=== PATIENT | male | born 1925 | race Caucasian/White ===

== ENCOUNTER → 2016-04-14 | Outpatient (CLI) | payer MEDICARE, OTHER ==
[~2016-04-14] MED LIST: *BLDWK6; *BLDWK7; *CXR; *ECHO -; *NEBULIZER; *OXYGEN NASAL; /ADVA50050; /TIOT18INH; ACET65TA; ADV100INH INH; ADVAIR100 INHALATION; ALBU/IPRAT INHALATION; ALBU2TAB; ALDACTON25 PO; ALDACTON50 PO; AMO500 PO; ASPI325T; ASPI325T PO; ATARAX PO; ATOR1TAB21 PO; ATROVENT0.02%; CARD8TAB2; CARD8TAB2 PO; CARDURA8 PO; CEFT500T; CEFTIN500 PO; COMBIVENT PO; COREG PO; DIOV160T5; DIOV320T; DIOVAN160 PO; DOXYCYC100 PO; HCTZ25; IBUP80TA PO; LASI40TA; LASI40TA PO; LASIX40 PO; LIPI20TA; LIPITOR10; LIPITOR20; LISINOPR20 PO; MOTRIN800; MUCI600T34 PO; MUCINEX PO; NITROSTAT4; PREDNISO10 PO; PROA1AER INH; SPIR1CAP INH; SPIR50TA2; SPIRIVA INH; THERGRAN; TOPROL25 PO; TRANDOLAPRIL; TRANDOLAPRIL PO; TUSSIONEX PO; TYLE325T5 PO; VERAPAMIL; VERAPAMIL PO; VICODIN-ES; VIOXX25; VITA20008 PO; VITA250T; VITMTA PO; ZEBETA5 PO; mucinex
--- NOTE | 2016-04-14 17:58 | REP ---
Chest x-ray: Two views. History: Diastolic CHF. No comparison chest x-ray. Findings: A unipolar pacemaker is seen in the right heart via the left side. Mild to moderate cardiomegaly is observed. Cardiothoracic ratio measures 16.8 cm over 31.9 cm. There is mild linear fibrosis in the right base. No pleural effusion is seen. Interstitial markings are somewhat prominent in the bases bilaterally. This is most compatible with interstitial fibrosis. Pulmonary vasculature is not increased. There are degenerative changes in the thoracic spine. Impression: Moderate cardiomegaly with pacemaker. Bibasilar interstitial fibrosis. Signed by Alejandro Wang MD 04/14/2016 08:17 P
== END ==
LOC: M ADAMS 16:18
PROVIDERS: ATTEND Family Medicine
DX: I51.7 Cardiomegaly (principal); I50.33 Acute on chronic diastolic (congestive) heart failure; J84.89 Other specified interstitial pulmonary diseases; Z95.0 Presence of cardiac pacemaker

== ENCOUNTER → 2016-04-14 | Outpatient (REF) | payer MEDICARE, OTHER ==
[~2016-04-14] MED LIST changes: -ADV100INH INH; -ASPI325T PO; -ATOR1TAB21 PO; -CARD8TAB2 PO; -LASI40TA PO; -MUCI600T34 PO; -PROA1AER INH; -SPIR1CAP INH; -TYLE325T5 PO; -VITA20008 PO; -VITMTA PO
[2016-04-14 20:34] LABS: CALCIUM LEVEL 8.5 MG/DL (8.8-10.2); CREATININE FOR GFR 2.43 MG/DL (0.70-1.30); GLOMERULAR FILTRATION RATE 26.9 (>35)
[2016-04-14 21:01] LABS: MEAN CORPUSCULAR HEMOGLOBIN 33.4 pg (27.0-33.0); MEAN CORPUSCULAR HGB CONC 32.2 g/dl (32.0-36.5); MEAN CORPUSCULAR VOLUME 103.9 fl (80.0-96.0); RED CELL DISTRIBUTION WIDTH 13.2 % (11.5-14.5); WHITE BLOOD COUNT 4.9 K/mm3 (4.0-10.0)
== END ==
LOC: M SFHCADAM 16:00
PROVIDERS: ATTEND Family Medicine
DX: I50.33 Acute on chronic diastolic (congestive) heart failure (principal); N18.3 Chronic kidney disease, stage 3 (moderate)

== ENCOUNTER 2016-04-22 09:26 | Inpatient (IN) | payer MEDICARE, BC, OTHER ==
[~2016-04-22] VITALS: Ht 175.3 cm; Wt 62.0 kg
[2016-04-22] VITALS (22 sets, daily range): BP systolic 87–127; BP diastolic 50–66
--- NOTE | 2016-04-22 10:30 | REP ---
CT HEAD WITHOUT CONTRAST: HISTORY: Trauma. Areas of decreased attenuation are present in the periventricular white matter. This represents small vessel ischemic disease. There is no intraparenchymal hemorrhage, mass or midline shift. The ventricular system and cortical sulci are dilated consistent with moderate volume loss. There is no extracerebral collection. There is no fracture. The visualized sinuses are clear. IMPRESSION: 1. Small vessel ischemic disease.2. Moderate volume loss. Signed by Bogdan Swanson MD 04/22/2016 10:33 A
[2016-04-22 10:52] LABS: BASO % 0.4 % (0.0-1.0); EOS % 0.4 % (0.0-3.0); LARGE UNSTAINED CELL # 0.2 K/mm3 (0.0-0.4); LARGE UNSTAINED CELL % 1.4 % (0.0-4.0); LYMPH # 1.3 K/mm3 (1.5-4.5); LYMPH % 9.9 % (24.0-44.0); MEAN CORPUSCULAR HGB CONC 31.7 g/dl (32.0-36.5); MEAN CORPUSCULAR VOLUME 104.2 fl (80.0-96.0); MONO # 0.6 K/mm3 (0.0-0.8); MONO % 5.5 % (0.0-5.0); NEUTROPHILS # 9.1 K/mm3 (1.8-7.7); NEUTROPHILS % 82.4 % (36.0-66.0); PLATELET COUNT, AUTOMATED 100 k/mm3 (150-450); RED CELL DISTRIBUTION WIDTH 14.3 % (11.5-14.5); WHITE BLOOD COUNT 11.1 K/mm3 (4.0-10.0)
[2016-04-22 11:19] LABS: ALBUMIN 3.4 GM/DL (3.2-5.2); ALBUMIN/GLOBULIN RATIO 1.03 (1.00-1.93); BILIRUBIN,DIRECT 0.7 MG/DL (0.0-0.2); BILIRUBIN,TOTAL 1.6 MG/DL (0.2-1.0); CALCIUM LEVEL 8.7 MG/DL (8.8-10.2); CREATININE FOR GFR 2.6 MG/DL (0.70-1.30); GLOMERULAR FILTRATION RATE 24.9 (>35); TOTAL PROTEIN 6.7 GM/DL (6.4-8.2)
[2016-04-22] MEDS ORDERED: MORPHINE 2 MG/ML 1ML SYRINGE As Ordered ONE ×2 (11:33→11:58)
[2016-04-22] MEDS ORDERED: ONDANSETRON 4MG/2ML VIAL (J2405) As Ordered ONE (11:33)
--- NOTE | 2016-04-22 11:50 | REP ---
PORTABLE CHEST: Single AP portable view of the chest is performed and compared to prior study 04/14/2016. Cardiomegaly is again noted as well as bibasilar fibrotic changes. I see no evidence of acute infiltrate or pulmonary edema. There is mild calcification of the thoracic aorta. Mediastinal silhouette is unchanged. Left single lead pacemaker is again noted. IMPRESSION: Cardiomegaly and chronic changes are stable. No acute infiltrate. Signed by Adolfo Limon MD 04/22/2016 12:46 P
[2016-04-22] MEDS ORDERED: IPRATROPIUM 0.5MG/ALBUTEROL 2.5MG INH SOL UD 3ML (DUONEB)(J7620) As Ordered ONE (13:00)
--- NOTE | 2016-04-22 13:55 | REP ---
CT study of the chest without contrast: History: Trauma. Left sided rib pain after a fall. Comparison is made with today's radiograph. Comparison chest CT study is from November 09, 2012. CT findings: There are multiple left-sided acute rib fractures. The posterior aspect of the left 4th, 5th, 6th, 7th, 8th and 9th ribs show fractures. There are lateral fractures of the left third rib as well as the left 4th, 5th, 6th and 7th ribs. The 4th through 7th ribs are fractured in two places. There is a small left pleural effusion consistent with a small left hemothorax. There are patchy areas of consolidation in the left lower lobe posterolaterally and posteromedially consistent with contusion. A very small quantity of pleural fluid is seen in the right posterior lung gutter as well. There is evidence of COPD with linear fibrosis in the bases. A somewhat spiculated nodular opacity is visible in the right upper lobe. This is 8 mm in diameter and is somewhat suspicious for primary pulmonary malignancy. It is a new finding when compared with the 2013 prior study. No other suspicious nodule is seen. No hilar or mediastinal mass is seen. Prominent vascular calcification is noted. No adrenal lesion is seen. Impression: 1. Multiple left-sided rib fractures with fractures involving ribs 3 through 9. Ribs 4-7 are fractured in two placed, posteriorly and laterally. There is a small amount of pleural fluid bilaterally. No pneumothorax is seen. 2. Left lower lobe pulmonary contusion. 3. Suspicious 8 mm spiculated nodule right upper lobe merits follow-up and further evaluation. 4. Cardiomegaly. Signed by Alejandro Wang MD 04/22/2016 03:00 P
[2016-04-22 14:21] LABS: INR 1.24
[2016-04-22] MEDS ORDERED: VITA20008 PO (14:27)
[2016-04-22] MEDS ORDERED: MUCI600T34 PO (14:27)
[2016-04-22] MEDS ORDERED: SPIR1CAP INH (14:27)
[2016-04-22] MEDS ORDERED: PROA1AER INH (14:27)
[2016-04-22] MEDS ORDERED: ASPI325T PO (14:27)
[2016-04-22] MEDS ORDERED: LASI40TA PO (14:27)
[2016-04-22] MEDS ORDERED: CARD8TAB2 PO (14:27)
[2016-04-22] MEDS ORDERED: TYLE325T5 PO (14:27)
[2016-04-22] MEDS ORDERED: VITMTA PO (14:27)
[2016-04-22] MEDS ORDERED: ATOR1TAB21 PO (14:27)
[2016-04-22] MEDS ORDERED: ADV100INH INH (14:28)
--- NOTE | 2016-04-22 16:01 | EDDOCDS ---
Physician Documentation [facility] Name: Diogenes Orellana Age: 89 yrs Sex: Male : 1925 Arrival Date: 04/22/2016 Time: 09:26 Bed 6 Private MD: Disposition: 04/22/16 14:14 Hospitalization ordered by Scar Hussein for Inpatient Admission. Preliminary diagnosis are Multiple fractures of ribs, Contusion of lung, Syncope and collapse. - Bed requested for Admit. - Status is Inpatient Admission. mcp - Condition is Stable. - Problem is new. - Symptoms are unchanged. Historical: - Allergies: no known allergies; - Home Meds: 1. Vitamin D Oral 2000 units daily (Last dose: 04/21/2016) 2. Lipitor 20 mg Oral tab 1 tab once daily (Last dose: 04/21/2016) 3. Lasix 120mg Oral 2 times per day (Last dose: 04/21/2016) 4. aspirin 325 mg Oral tab 1 tab once daily (Last dose: 04/21/2016) 5. Spiriva with HandiHaler 18 mcg Inhl CpDv 1 cap once daily (Last dose: 04/21/2016) 6. Cardura 8 mg Oral tab 1 tab once daily (Last dose: 04/21/2016) 7. ProAir HFA 90 mcg/actuation inhalation HFAA 2 puffs every 4 hours 8. Tylenol 500mg tab 1-2 tabs po BID as needed Oral 9. Multivitamins 1 tab daily 10. Mucinex 600 mg oral Ta12 1 tab every 12 hours - PMHx: Stage III Kidney Disease; CHF; COPD; Hypercholesterolemia; - PSHx: Pacemaker Insertion; - Social history: Smoking status: Patient states former smoker of tobacco. No barriers to communication noted, The patient speaks fluent [place], Speaks appropriately for age. - Family history: Not pertinent. - : The pt / caregiver states he / she is not on anticoagulants. Home medication list is obtained from the patient, family members. - Exposure Risk Screening:: None identified. Vital Signs: 04/22 09:54 BP 106 / 54; Pulse 56; Resp 20; Temp 97.5(TE); Pulse Ox 92% 3 lpm ; Weight 61.69 kg / jo3 136 lbs; Height 5 ft. 9 in. (175.26 cm); 11:42 BP 113 / 58 (auto/); lf1 11:43 Pulse 58 MON; Pulse Ox 87% ; lf1 12:55 BP 96 / 51 (auto/); lf1 12:55 Pulse 56 MON; Pulse Ox 87% ; lf1 13:10 BP 103 / 57 (auto/); lf1 13:10 Pulse 66 MON; lf1 13:25 BP 115 / 58 (auto/); lf1 13:25 Pulse 62 MON; Pulse Ox 93% ; lf1 13:40 BP 114 / 59 (auto/); lf1 13:40 Pulse 64 MON; Pulse Ox 96% ; lf1 13:55 BP 108 / 57 (auto/); lf1 13:55 Pulse 66 MON; Pulse Ox 93% ; lf1 14:10 BP 110 / 55 (auto/); lf1 14:10 Pulse 68 MON; Pulse Ox 90% ; lf1 14:25 BP 106 / 56 (auto/); lf1 14:25 Pulse 74 MON; Pulse Ox 94% ; lf1 14:39 Pulse 72 MON; Pulse Ox 95% ; lf1 14:40 BP 101 / 58 (auto/); lf1 14:55 BP 102 / 55 (auto/); lf1 14:55 Pulse 70 MON; Pulse Ox 93% ; lf1 15:10 BP 100 / 57 (auto/); lf1 15:10 Pulse 64 MON; Pulse Ox 94% ; lf1 15:25 BP 96 / 51 (auto/); lf1 15:25 Pulse 70 MON; Pulse Ox 87% ; lf1 15:30 BP 89 / 51 (auto/); lf1 15:30 Pulse 68 MON; Pulse Ox 91% ; lf1 15:40 BP 90 / 54 (auto/); jo3 15:40 Pulse 68 MON; Resp 22; Temp 97.5(TE); Pulse Ox 91% ; jo3 09:54 Body Mass Index 20.08 (61.69 kg, 175.26 cm) jo3 09:54 80% on RA jo3 MDM: 09:54 Director Of Category Management/Pulse Ox/q 15 min VS ordered. sd1 09:54 Accucheck ordered. sd1 09:54 IV Saline Lock ordered. sd1 09:54 Oxygen at 4L/Min NC or Home dosage ordered. sd1 09:54 Rhythm Strip to chart ordered. sd1 09:55 CBC with Diff Ordered. EDMS 09:55 Cardiac Injury Profile Ordered. EDMS 09:55 Liver Profile Ordered. EDMS 09:55 MED Profile Ordered. EDMS 09:55 Thyroid Stimulating Hormone Ordered. EDMS 09:55 Troponin Ordered. EDMS 09:56 CT Head Without Contrast Ordered. EDMS 09:56 ECG WITH READING ER PHYS+CARDIAG ordered. EDMS 10:56 morphine 2 mg IVP every 15 minutes; Document pain score/vitals after each dose (Hold if sd1 SBP < 90mmHg) x3 ordered. 10:56 Ondansetron 4 mg IVP once ordered. sd1 10:57 Chest, 1 View Ordered. EDMS 11:20 CBC with Diff Reviewed. sd1 11:20 Liver Profile Reviewed. sd1 11:20 MED Profile Reviewed. sd1 11:20 Troponin Reviewed. sd1 11:20 CT Head Without Contrast Reviewed. sd1 11:28 Financial registration complete. lg 11:42 [facility] [place] Payment Agreement was scanned into [email or web address] and attached to record. lg 11:57 Cardiac Injury Profile Reviewed. sd1 11:57 Liver Profile Reviewed. sd1 11:57 MED Profile Reviewed. sd1 11:57 Troponin Reviewed. sd1 11:57 Thyroid Stimulating Hormone Reviewed. sd1 12:01 Redraw CIP &Troponin (put time in details section) ordered. sd1 12:03 Redraw CIP &Troponin (put time in details section) complete. deg 12:05 CARDIAC MARKER PANEL Ordered. EDMS 12:54 Albuterol-Ipratropium 3 ml Inhalation once ordered. sd1 12:54 Chest, 1 View Reviewed. sd1 12:56 CT Chest Without Contrast Ordered. EDMS 13:29 Chest, 1 View Reviewed. sd1 14:00 CARDIAC MARKER PANEL Reviewed. sd1 14:00 Chest, 1 View Reviewed. sd1 14:11 PT/INR Ordered. EDMS 14:30 ELECTROCARDIOGRAM ADULT ordered. EDMS 14:51 REGULAR+DIET ordered. EDMS 14:59 REGULAR+DIET ordered. EDMS 15:14 TROPONIN Ordered. EDMS Administered Medications: 11:40 Drug: Ondansetron 4 mg [ondansetron HCl 2 mg/mL intravenous solution (2 mL)] Route: jo3 IVP; Site: right antecubital; 11:42 Drug: morphine 2 mg [morphine 2 mg/mL intravenous cartridge (1 mL)] Route: IVP; Site: jo3 right antecubital; 12:00 Drug: morphine 2 mg [morphine 2 mg/mL intravenous cartridge (1 mL)] Route: IVP; Site: jo3 right antecubital; 13:05 Drug: Albuterol-Ipratropium 3 ml [ipratropium-albuterol 0.5 mg-3 mg(2.5 mg base)/3 mL kt1 nebulization soln (3 mL)] Route: Inhalation; 13:20 Follow up: Response: Nebulizer completed kt1 Signatures: Dispatcher [employer] EDMS Maria Esther Garcia MD MD sd1 Jessica Mejia, Clerical Dentist Assistant Unit deg Bethany Jernigan RN RN Mago Mcclellan Reg Reg lg Helmerci, Jennifer, RN RN jo3 Jasmyn Deras kt1 The chart was reviewed and I authenticate all verbal orders and agree with the evaluation and treatment provided.Corrections: (The following items were deleted from the chart) 14:25 14:22 TROPONIN ordered. EDCT EDMS Attachments: 11:42 [facility] [place] Payment Agreement lg MTDD
--- NOTE | 2016-04-22 16:02 | EDDOCDS ---
Nurse's Notes [facility] Name: Diogenes Orellana Age: 89 yrs Sex: Male : 1925 Arrival Date: 04/22/2016 Time: 09: Bed 6 Private MD: Diagnosis: Multiple fractures of ribs;Contusion of lung;Syncope and collapse Presentation: 04/22 09:48 Presenting complaint: EMS states: Fell at home possibly to dizziness, general weakness. jo3 Daughter states that pt has fallen 1x in the past week. Was supposed to f/u with Dr Toledo today. Last week Dr toledo increased pts Lasix from 80mg in am and 40mg in pm to 120mg BID. Adult Sepsis Screening: The patient does not have new or worsening altered mentation. Patient's respiratory rate is less than 22. Patient has a qSOFA score of 0- Negative Sepsis Screen. Suicide/Homicide risk assessment- the patient denies having any suicidal and/or homicidal ideations and does not present with any other emotional, behavioral or mental health complaints. Status: Patient is not a business services assistant or dependent. Transition of care: patient was not received from another setting of care. 09:48 Acuity: MARNI Level 3 jo3 09:48 Method Of Arrival: Ambulance jo3 Triage Assessment: 09:54 General: Appears in no apparent distress, uncomfortable, Behavior is appropriate for jo3 age, cooperative, pleasant. Pain: Location: left anterior and left posterior rib pain. Historical: - Allergies: no known allergies; - Home Meds: 1. Vitamin D Oral 2000 units daily (Last dose: 04/21/2016) 2. Lipitor 20 mg Oral tab 1 tab once daily (Last dose: 04/21/2016) 3. Lasix 120mg Oral 2 times per day (Last dose: 04/21/2016) 4. aspirin 325 mg Oral tab 1 tab once daily (Last dose: 04/21/2016) 5. Spiriva with HandiHaler 18 mcg Inhl CpDv 1 cap once daily (Last dose: 04/21/2016) 6. Cardura 8 mg Oral tab 1 tab once daily (Last dose: 04/21/2016) 7. ProAir HFA 90 mcg/actuation inhalation HFAA 2 puffs every 4 hours 8. Tylenol 500mg tab 1-2 tabs po BID as needed Oral 9. Multivitamins 1 tab daily 10. Mucinex 600 mg oral Ta12 1 tab every 12 hours - PMHx: Stage III Kidney Disease; CHF; COPD; Hypercholesterolemia; - PSHx: Pacemaker Insertion; - Social history: Smoking status: Patient states former smoker of tobacco. No barriers to communication noted, The patient speaks fluent Kiswahili, Speaks appropriately for age. - Family history: Not pertinent. - : The pt / caregiver states he / she is not on anticoagulants. Home medication list is obtained from the patient, family members. - Exposure Risk Screening:: None identified. Screenin:46 Screening information is obtained from the patient, family members. Fall risk: At risk jo3 due to prior history of falls. Assistance ADL's: requires no assistance with activities of daily living. Abuse/DV Screen: The patient / caregiver reports he/she is: not in a situation that causes fear, pain or injury. Nutritional screening: No deficits noted. home support is adequate. 15:40 Advance Directives: There is no active DNR order. jo3 Assessment: 10:10 General: Appears uncomfortable, well nourished, well groomed, Behavior is appropriate jo3 for age, cooperative, pleasant. Neurological: Level of Consciousness is awake, alert, Oriented to person, place, time. Cardiovascular: pacer to left chest. Pt reports on demand and set at 50 BPM. Respiratory: Airway is patent Respiratory effort is even, unlabored, Breath sounds are clear bilaterally. Derm: Skin is pink, warm & dry. small skin tear to left upper arm. secured with band aids from home. Musculoskeletal: Circulation, motion, and sensation intact Pt reports pain to left rib area both anteriorly and posteriorly. 11:00 Reassessment: Patient appears in no apparent distress at this time. Patient states jo3 symptoms have not improved. Pt resting on stretcher with family at bedside. awaiting visit from ED provider. aware of plan of care . 12:15 Reassessment: Patient appears in no apparent distress at this time. Patient states jo3 feeling better. Patient states symptoms have improved. Neurological: Level of Consciousness is awake, alert, Oriented to person, place, time. Respiratory: Airway is patent Respiratory effort is even, unlabored. Derm: Skin is pink, warm & dry. 13:20 General: Appears in no apparent distress, Behavior is appropriate for age, cooperative. jo3 Neurological: Level of Consciousness is awake, alert, Oriented to person, place, time. Respiratory: Airway is patent Respiratory effort is even, unlabored, Some O2 saturation decreases noted. Pt not noted to have any distress. Corrected with Ventimask. Provider notified. 14:20 Reassessment: Patient appears in no apparent distress at this time. Neurological: Level jo3 of Consciousness is awake, alert. Respiratory: Airway is patent Respiratory effort is even, unlabored. 15:39 General: Appears uncomfortable, Behavior is cooperative. Pain: Location: left chest lf1 Pain currently is 8 out of 10 on a pain scale. Aggravated by inspiration. Neurological: Level of Consciousness is awake, alert. Respiratory: Respiratory effort is even, labored, Reports shortness of breath pain with respiration. GI: Denies nausea, vomiting. Derm: multiple bruises and skin tears to BL UE. Vital Signs: 09:54 BP 106 / 54; Pulse 56; Resp 20; Temp 97.5(TE); Pulse Ox 92% 3 lpm ; Weight 61.69 kg; jo3 Height 5 ft. 9 in. (175.26 cm); 11:42 BP 113 / 58 (auto/); lf1 11:43 Pulse 58 MON; Pulse Ox 87% ; lf1 12:55 BP 96 / 51 (auto/); lf1 12:55 Pulse 56 MON; Pulse Ox 87% ; lf1 13:10 BP 103 / 57 (auto/); lf1 13:10 Pulse 66 MON; lf1 13:25 BP 115 / 58 (auto/); lf1 13:25 Pulse 62 MON; Pulse Ox 93% ; lf1 13:40 BP 114 / 59 (auto/); lf1 13:40 Pulse 64 MON; Pulse Ox 96% ; lf1 13:55 BP 108 / 57 (auto/); lf1 13:55 Pulse 66 MON; Pulse Ox 93% ; lf1 14:10 BP 110 / 55 (auto/); lf1 14:10 Pulse 68 MON; Pulse Ox 90% ; lf1 14:25 BP 106 / 56 (auto/); lf1 14:25 Pulse 74 MON; Pulse Ox 94% ; lf1 14:39 Pulse 72 MON; Pulse Ox 95% ; lf1 14:40 BP 101 / 58 (auto/); lf1 14:55 BP 102 / 55 (auto/); lf1 14:55 Pulse 70 MON; Pulse Ox 93% ; lf1 15:10 BP 100 / 57 (auto/); lf1 15:10 Pulse 64 MON; Pulse Ox 94% ; lf1 15:25 BP 96 / 51 (auto/); lf1 15:25 Pulse 70 MON; Pulse Ox 87% ; lf1 15:30 BP 89 / 51 (auto/); lf1 15:30 Pulse 68 MON; Pulse Ox 91% ; lf1 15:40 BP 90 / 54 (auto/); jo3 15:40 Pulse 68 MON; Resp 22; Temp 97.5(TE); Pulse Ox 91% ; jo3 09:54 Body Mass Index 20.08 (61.69 kg, 175.26 cm) jo3 09:54 80% on RA jo3 Vitals: 09:54 Log In Time N/A - ambulance arrival. jo3 ED Course: 09:27 Patient visited by Jessica Mejia, Gas Plumber. deg 09:27 Patient moved to Waiting deg 09:28 Patient moved to 6 deg 09:52 Triage Initiated jo3 09:59 Patient visited by Deepti Nash,CHELSEA. jo3 10:06 Accompanied by Family Member, Patient has correct armband on for positive ct3 identification. Placed in gown. Bed in low position. Call light in reach. Side rails up X2. front desk monitor on. Pulse ox on. NIBP on. 10:06 EKG done. (by ED staff). Reviewed by Maria Esther Garcia MD. ct3 10:07 Patient visited by Stephanie Laguerre PCA. ct3 10:34 CT Head Without Contrast Returned. EDMS 10:43 Maria Esther Garcia MD is Attending Physician. sd1 10:56 Patient visited by Maria Esther Garcia MD. sd1 11:03 Patient visited by Deepti Nash,CHELSEA. jo3 11:18 Inserted saline lock: 20 gauge in right antecubital area. Labs drawn. (by ED staff). jo3 Sent per order to lab. 11:35 Patient visited by Stephanie Laguerre PCA. ct3 11:42 [facility] Payment Agreement was scanned into [employer] and attached to record. lg 11:47 Patient visited by Deepti Nash RN. jo3 12:07 Chest, 1 View Returned. EDMS 12:55 Patient visited by Stephanie Laguerre PCA. ct3 12:56 Chest, 1 View Returned. EDMS 13:37 Patient visited by Stephanie Laguerre PCA. ct3 13:46 Chest, 1 View Returned. EDMS 14:14 Scar Hussein is Hospitalizing Provider. sd1 14:37 CT Chest Without Contrast Returned. EDMS 15:40 The patient / caregiver is instructed regarding the plan of care and ED course. jo3 15:44 No procedures done that require assistance. jo3 Administered Medications: 11:40 Drug: Ondansetron 4 mg [ondansetron HCl 2 mg/mL intravenous solution (2 mL)] Route: jo3 IVP; Site: right antecubital; 11:42 Drug: morphine 2 mg [morphine 2 mg/mL intravenous cartridge (1 mL)] Route: IVP; Site: jo3 right antecubital; 12:00 Drug: morphine 2 mg [morphine 2 mg/mL intravenous cartridge (1 mL)] Route: IVP; Site: jo3 right antecubital; 13:05 Drug: Albuterol-Ipratropium 3 ml [ipratropium-albuterol 0.5 mg-3 mg(2.5 mg base)/3 mL kt1 nebulization soln (3 mL)] Route: Inhalation; 13:20 Follow up: Response: Nebulizer completed kt1 RT: 13:20 Initial Med Neb Given as ordered Patient was instructed and evaluated on procedure. kt1 Respiratory: Breath sounds are clear bilaterally. Order Results: Lab Order: CBC with Diff; SPEC'M 04/22/16 10:33 Test: WHITE BLOOD COUNT; Value: 11.1; Range: 4.0-10.0; Abnormal: Above high normal; Units: K/mm3; Status: F Test: RED BLOOD COUNT; Value: 3.92; Range: 4.30-6.10; Abnormal: Below low normal; Units: M/mm3; Status: F Test: HEMOGLOBIN; Value: 12.9; Range: 14.0-18.0; Abnormal: Below low normal; Units: g/dl; Status: F Test: HEMATOCRIT; Value: 40.8; Range: 42.0-52.0; Abnormal: Below low normal; Units: %; Status: F Test: MEAN CORPUSCULAR VOLUME; Value: 104.2; Range: 80.0-96.0; Abnormal: Above high normal; Units: fl; Status: F Test: MEAN CORPUSCULAR HEMOGLOBIN; Value: 33.0; Range: 27.0-33.0; Units: pg; Status: F Test: MEAN CORPUSCULAR HGB CONC; Value: 31.7; Range: 32.0-36.5; Abnormal: Below low normal; Units: g/dl; Status: F Test: RED CELL DISTRIBUTION WIDTH; Value: 14.3; Range: 11.5-14.5; Units: %; Status: F Test: PLATELET COUNT, AUTOMATED; Value: 100; Range: 150-450; Abnormal: Below low normal; Units: k/mm3; Status: F Test: NEUTROPHILS %; Value: 82.4; Range: 36.0-66.0; Abnormal: Above high normal; Units: %; Status: F Test: LYMPH %; Value: 9.9; Range: 24.0-44.0; Abnormal: Below low normal; Units: %; Status: F Test: MONO %; Value: 5.5; Range: 0.0-5.0; Abnormal: Above high normal; Units: %; Status: F Test: EOS %; Value: 0.4; Range: 0.0-3.0; Units: %; Status: F Test: BASO %; Value: 0.4; Range: 0.0-1.0; Units: %; Status: F Test: LARGE UNSTAINED CELL %; Value: 1.4; Range: 0.0-4.0; Units: %; Status: F Test: NEUTROPHILS #; Value: 9.1; Range: 1.8-7.7; Abnormal: Above high normal; Units: K/mm3; Status: F Test: LYMPH #; Value: 1.3; Range: 1.5-4.5; Abnormal: Below low normal; Units: K/mm3; Status: F Test: MONO #; Value: 0.6; Range: 0.0-0.8; Units: K/mm3; Status: F Test: EOS #; Value: 0.0; Range: 0.0-0.50; Units: K/mm3; Status: F Test: BASO #; Value: 0.0; Range: 0.0-0.2; Units: K/mm3; Status: F Test: LARGE UNSTAINED CELL #; Value: 0.2; Range: 0.0-0.4; Units: K/mm3; Status: F Lab Order: Cardiac Injury Profile; [facility] 04/22/16 10:33 Test: CPK CREATINE PHOSPHOKINASE; Value: 100; Range: 39-308; Units: U/L; Status: F Test: CK-MB VALUE MASS; Value: 5.2; Range: 0.0-3.6; Abnormal: Above high normal; Units: NG/ML; Status: F Test: MB/CK RELATIVE INDEX; Value: 5.20; Range: < OR =4; Abnormal: Above high normal; Status: F Test Note: ; DIAGNOSIS CRITERIA MMB ng/ml Relative Index (RI) NON-AMI < or = 5 N/A LIMON ZONE > 5 < or = 4 AMI > 5 > 4 Lab Order: Liver Profile; [facility] 04/22/16 10:33 Test: AST/SGOT; Value: 28; Range: 15-37; Units: U/L; Status: F Test: ALT/SGPT; Value: 27; Range: 12-78; Units: U/L; Status: F Test: ALKALINE PHOSPHATASE; Value: 148; Range: 45-117; Abnormal: Above high normal; Units: U/L; Status: F Test: BILIRUBIN,TOTAL; Value: 1.6; Range: 0.2-1.0; Abnormal: Above high normal; Units: MG/DL; Status: F Test: BILIRUBIN,DIRECT; Value: 0.7; Range: 0.0-0.2; Abnormal: Above high normal; Units: MG/DL; Status: F Test: TOTAL PROTEIN; Value: 6.7; Range: 6.4-8.2; Units: GM/DL; Status: F Test: ALBUMIN; Value: 3.4; Range: 3.2-5.2; Units: GM/DL; Status: F Test: ALBUMIN/GLOBULIN RATIO; Value: 1.03; Range: 1.00-1.93; Status: F Lab Order: MED Profile; SPEC04/22/16 10:33 Test: GLUCOSE, FASTING; Value: 156; Range: 83-110; Abnormal: Above high normal; Units: MG/DL; Status: F Test: BLOOD UREA NITROGEN; Value: 76; Range: 7-18; Abnormal: Above high normal; Units: MG/DL; Status: F Test: CREATININE FOR GFR; Value: 2.60; Range: 0.70-1.30; Abnormal: Above high normal; Units: MG/DL; Status: F Test: GLOMERULAR FILTRATION RATE; Value: 24.9; Range: >35; Abnormal: Below low normal; Status: F Test: SODIUM LEVEL; Value: 143; Range: 136-145; Units: MEQ/L; Status: F Test: POTASSIUM SERUM; Value: 4.0; Range: 3.5-5.1; Units: MEQ/L; Status: F Test: CHLORIDE LEVEL; Value: 106; Range: 98-107; Units: MEQ/L; Status: F Test: CARBON DIOXIDE LEVEL; Value: 24; Range: 21-32; Units: MEQ/L; Status: F Test: ANION GAP; Value: 13; Range: 8-16; Units: MEQ/L; Status: F Test: CALCIUM LEVEL; Value: 8.7; Range: 8.8-10.2; Abnormal: Below low normal; Units: MG/DL; Status: F Test Note: ; Units are mL/min/1.73 m2 Chronic Kidney Disease Staging per NKF: Stage I & II GFR >=60 Normal to Mildly Decreased Stage III GFR 30-59 Moderately Decreased Stage IV GFR 15-29 Severely Decreased Stage V GFR <15 Very Little GFR Left ESRD GFR <15 on SUBGRADE ROLLER OPERATOR Lab Order: Thyroid Stimulating Hormone; [facility] 04/22/16 10:33 Test: THYROID STIMULATING HORMONE; Value: 2.580; Range: 0.358-3.740; Units: uIU/ML; Status: F Lab Order: Troponin; [facility] 04/22/16 10:33 Test: TROPONIN I; Value: 0.43; Range: < 0.10; Abnormal: Above high normal; Units: NG/ML; Status: F Test Note: ; Troponin I Reference Interval for [place] LOCI: 99th Percentile= 0.00-0.045 ng/ml Risk Stratification: <= 0.10 ng/ml Decreased Risk for Adverse Clinical Events. 0.10-1.50 ng/ml Increased Risk for Adverse Clinical Events. Evaluation of additional criterion and/or repeat testing in 2-6 hours is suggested to rule out myocardial damage. >= 1.50 ng/ml Indicative of Myocardial Injury. Lab Order: CARDIAC MARKER PANEL; SPEC'[facility] 04/22/16 12:44 Test: CPK CREATINE PHOSPHOKINASE; Value: 128; Range: 39-308; Units: U/L; Status: F Test: CK-MB VALUE MASS; Value: 10.1; Range: 0.0-3.6; Abnormal: Above high normal; Units: NG/ML; Status: F Test: MB/CK RELATIVE INDEX; Value: 7.89; Range: < OR =4; Abnormal: Above high normal; Status: F Test: TROPONIN I; Value: 1.34; Range: < 0.10; Abnormal: High; Units: NG/ML; Status: F Test Note: ; DIAGNOSIS CRITERIA MMB ng/ml Relative Index (RI) NON-AMI < or = 5 N/A LIMON [place]ONE > 5 < or = 4 AMI > 5 > 4 Lab Order: PT/INR; SPE[facility] 04/22/16 10:33 Test: PROTHROMBIN TIME; Value: 15.7; Range: 12.3-14.5; Abnormal: Above high normal; Units: SECONDS; Status: F Test: INR; Value: 1.24; Status: F Test Note: ; THERAPUTIC HUMAN INR VALUES INDICATIONS NORMAL RANGES PROPHYLAXIS/TREATMENT OF: VENOUS THROMBOSIS 2.0-3.0 PULMONARY EMBOLISM 2.0-3.0 PREVENTION OF SYSTEMIC EMBOLISM FROM: TISSUE HEART VALVES 2.0-3.0 ACUTE MYOCARDIAL INFARCTION 2.0-3.0 VALVULAR HEART DISEASE 2.0-3.0 ATRIAL FIBRILLATION 2.0-3.0 MECHANICAL VALVES(HIGH RISK) 2.5-3.5 RECURRENT MYOCARDIAL INFARCTION 2.5-3.5 Radiology Order: CT Head Without Contrast Test: CT Head Without Contrast REASON FOR EXAMINATION: Trauma; CT HEAD WITHOUT CONTRAST:; ; HISTORY: Trauma.; ; Areas of decreased attenuation are present in the periventricular white matter.; This represents small vessel ischemic disease. There is no intraparenchymal; hemorrhage, mass or midline shift. The ventricular system and cortical sulci are; dilated consistent with moderate volume loss. There is no extracerebral; collection. There is no fracture. The visualized sinuses are clear.; ; IMPRESSION:; ; 1. Small vessel ischemic disease.2. Moderate volume loss.; ; ; Signed by; Bogdan Swanson MD 04/22/2016 10:33 A; Radiology Order: Chest, 1 View Test: Chest, 1 View REASON FOR EXAMINATION: Cough;Trauma; PORTABLE CHEST:; ; Single AP portable view of the chest is performed and compared to prior study; 04/14/2016. Cardiomegaly is again noted as well as bibasilar fibrotic changes.; I see no evidence of acute infiltrate or pulmonary edema. There is mild; calcification of the thoracic aorta. Mediastinal silhouette is unchanged. Left; single lead pacemaker is again noted.; ; IMPRESSION:; ; Cardiomegaly and chronic changes are stable. No acute infiltrate.; ; ; Signed by; Adolfo Limon MD 04/22/2016 12:46 P; Radiology Order: CT Chest Without Contrast Test: CT Chest Without Contrast REASON FOR EXAMINATION: Trauma; CT study of the chest without contrast:; ; History: Trauma. Left sided rib pain after a fall. Comparison is made with; today's radiograph. Comparison chest CT study is from November 09, 2012.; ; CT findings: There are multiple left-sided acute rib fractures. The posterior; aspect of the left 4th, 5th, 6th, 7th, 8th and 9th ribs show fractures. There; are lateral fractures of the left third rib as well as the left 4th, 5th, 6th and; 7th ribs. The 4th through 7th ribs are fractured in two places.; ; There is a small left pleural effusion consistent with a small left hemothorax.; There are patchy areas of consolidation in the left lower lobe posterolaterally; and posteromedially consistent with contusion. A very small quantity of pleural; fluid is seen in the right posterior lung gutter as well. There is evidence of; COPD with linear fibrosis in the bases.; ; A somewhat spiculated nodular opacity is visible in the right upper lobe. This; is 8 mm in diameter and is somewhat suspicious for primary pulmonary malignancy.; It is a new finding when compared with the 2012 prior study. No other suspicious; nodule is seen. No hilar or mediastinal mass is seen. Prominent vascular; calcification is noted. No adrenal lesion is seen.; ; Impression:; ; 1. Multiple left-sided rib fractures with fractures involving ribs 3 through 9.; Ribs 4-7 are fractured in two placed, posteriorly and laterally. There is a; small amount of pleural fluid bilaterally. No pneumothorax is seen.; ; 2. Left lower lobe pulmonary contusion.; ; 3. Suspicious 8 mm spiculated nodule right upper lobe merits follow-up and; further evaluation.; ; 4. Cardiomegaly.; ; ; Signed by; Alejandro Wang MD 04/22/2016 03:00 P; Outcome: 14:14 Decision to Hospitalize by Provider. sd1 15:43 Discharge Assessment: Patient awake, alert and oriented x 3. No cognitive and/or jo3 functional deficits noted. Patient verbalized understanding of disposition instructions. patient administered narcotics - yes. Patient was admitted to the hospital or transferred to another facility. The following High Risk Discharge criteria are identified: None. Admitted to PCU accompanied by nurse, accompanied by tech, family with patient, via stretcher, with oxygen, on monitor, with chart. Condition: stable. CT Study completed. Property :Personal belongings accompany Pt. 16:01 Patient left the ED. [facility] Signatures: Dispatcher [employer] EDMS Maria Esther Garcia MD MD sd1 Jessica Mejia, Gas Plumber Unit Bethany Dillon, RN Mago Michel mcp, Jasmyn Mtz lg, kt1 Deepti Nash RN RN jo3 Jennifer Knott RN RN lf1 Stephanie Laguerre, JOJO PRESS MAINTAINER ct3 MTDD
[2016-04-22] MEDS ORDERED: KCL 20MEQ IN D5/NS 1000ML 1,000 ML IV SCH (16:48)
[2016-04-22] MEDS ORDERED: NORCO, ANEXSIA 5/325MG TABLET (HYDROcodone/ACETAMINOPHEN) PO PRN (17:00)
[2016-04-22] MEDS ORDERED: LEVALBUTEROL 1.25 MG/0.5 ML CONCENTRATE NEB NEB PRN (17:00)
[2016-04-22] MEDS ORDERED: ACETAMINOPHEN TAB 650MG DOSE (2X325MG) PO PRN (17:00)
[2016-04-22] MEDS ORDERED: ceFAZolin SOD 1 GM in D5W MINI-BAG PLUS 50 ML IV SCH (17:00)
[2016-04-22] MEDS ORDERED: ONDANSETRON 4MG/2ML VIAL (J2405) IV PRN ×2 (17:00→19:00)
[2016-04-22] MEDS ORDERED: zolPIDEM TARTRATE 5 MG TAB PO PRN (17:00)
[2016-04-22] MEDS ORDERED: PERCOCET 5MG/325MG TAB PO PRN ×2 (17:00)
[2016-04-22] MEDS ORDERED: BISACODYL 10 MG SUPP PR PRN (17:00)
[2016-04-22] MEDS ORDERED: KETOROLAC 30 MG/ML VIAL (J1885) IV SCH (17:00)
--- NOTE | 2016-04-22 17:00 | CR.PDOC ---
[facility] Cardiology Consultation Date of Consultation 04/22/16 Cadiology Consultation REFERRING PHYSICIAN: Scar Hussein M.D. REASON FOR REFERRAL: Syncope, Abnormal troponin I HISTORY OF PRESENT ILLNESS: 89-year-old man with chronic atrial fibrillation, status post [employer] single-chamber pacemaker (VVI 50), chronic kidney disease stage III, Cardiovascular Symptoms Patient had sudden loss of consciousness while standing without warning on 2 occasions last week and again today. He did not have any preceding palpitations , nausea or vomiting. Today he sustained multiple left-sided rib fractures as result of syncope. He reports a productive cough with brown sputum. He reports chronic exertional dyspnea currently with less than ordinary activities of daily living. He reports that his diuretic was increased because of peripheral edema; he still reports some edema but improved. No orthopnea or PND. Currently he has chest pain related to history of fractures. Prior to sustaining rib fractures today he has not been bothered by any exertional or nonexertional chest pain, pressure, tightness, squeezing, or heaviness and no associated such pain or discomfort in the neck, jaw, upper extremities, or epigastric region. No palpitations. No embolic events. No claudication. PAST MEDICAL: Chronic atrial fibrillation (refuses anticoagulation) Chronic kidney disease stage III (followed by Dr. Jesus Bella) Diastolic heart failure (diagnosis 2006) Echocardiogram 06/2006: LVEF 55-60%, moderately severe pulmonary hypertension, mild-moderate MR. Systemic Hypertension BPH COPD GERD Tinnitus, bilateral decreased hearing Hyperlipidemia Herniated L4-L5 disc Diverticulosis (colonoscopy 11/2002) Pneumonia (right middle lobe, 12/2007) SURGICAL HISTORY: [employer] single-chamber pacemaker Pilonidal cyst surgery with an 60 years ago. FAMILY HISTORY: Noncontributory due to advanced age. SOCIAL HISTORY: Resident of [employer]. . Retired. Nonsmoker at present. No alcohol. REVIEW OF SYSTEMS: As per HPI above. He also reports a 30 pound weight loss over the past one year. No anxiety, panic attacks, or depression. GERD, decreased hearing, tinnitus, left eye cataract, BPH, prior nasal fracture. Bilateral shoulder pain. All other 10 point review of systems questions negative. PHYSICAL EXAMINATION: VITAL SIGNS: Please see below. GENERAL APPEARANCE: - Normal body weight. Not in any respiratory or psychologic distress. No gross head, facial, or skeletal deformities. EYES: No conjunctival pallor, scleral icterus or xanthelasma. ENT/Mouth: - Some dental fillings. - Some missing teeth. NECK: Jugular Venous Pulsations: 2 cm Trachea midline. No palpable thyroid. EXTREMITIES: No clubbing, nailbed cyanosis, or splinter hemorrhages. SKIN: No skin lesions. No skin pallor or icterus. NEUROLOGIC/PSYCHOLOGIC: Oriented to person, place, and time. Mood and affect normal. Speech normal. MUSCULOSKELETAL: Curvature of the spine normal. Gross motor strength and tone normal. No muscle atrophy, fasciculations, or tremors. - Gait not appropriate to test at this time. THORAX: Breathing appears unlabored with normal expansion. No dullness to percussion. Fair breath sound intensity. No crackles, wheezes, or prolonged expiration. Tender over the lower left posterior hemithorax. HEART: Pacemaker in situ left pectoral region. No palpable apex beat. No left parasternal lifts, heaves, or thrills. S1 normal. S2 normal. No S3 or S4. No systolic clicks, opening snap, pericardial knock, or pericardial friction rubs No murmurs. ARTERIAL PULSES: Carotids normal in volume and contour and without bruits. No palpable abdominal aorta. Femoral pulses 2+/2 Pedal pulses 2+/2 LOWER EXTREMITY EDEMA: - No edema. ABDOMEN: Abdomen soft nontender with normal bowel sounds. No abdominal bruits. No hepatomegaly, splenomegaly, or abdominal masses. - Liver span (right midclavicular line): 12 cm - Stool for occult blood not indicated. ALLERGIES: Please see below. HOME MEDICATIONS: Please see below. CURRENT MEDICATIONS: Please see below. Electrocardiogram: Not available for my review at the time of this dictation. LABORATORY DATA: Please see below. IMAGING: Portable chest x-ray 04/22/2016 reported cardiomegaly and chronic changes (stable ). Bibasilar fibrotic changes. Mild calcification of the thoracic or. Presence of a single chamber pacemaker. CT chest without contrast 04/22/2016 reported multiple left-sided rib fractures involving ribs 3 through 9. Ribs 4-7 fractured in 2 places (posteriorly and laterally). Small amount of pleural fluid bilaterally. No pneumothorax. Left lower lobe contusion. Suspicious 8 mm spiculated nodule right upper lobe. Cardiomegaly. ASSESSMENT/PLAN: 1. Recurrent syncope. I suspect this patient's recurrent syncope is most likely related to dehydration and his cardiovascular medications (furosemide, doxazosin ). Pacemaker was interrogated and found to show normal function. It is set at VVI 50. Recommend obtaining orthostatic BP measurements. Recommend switching patient from doxazosin to tamsulosin. Recommend obtaining chest CTA to rule out acute pulmonary embolism. 2. Chronic atrial fibrillation. Continue aspirin. Patient has refused oral anti- coordination on multiple occasions. He does not require AV oxana slowing medications. 3. Advanced AV block. Status post single-chamber pacemaker in situ (VVI 50). 4. [employer] ventricular pacemaker in situ. Set at VVI 50. Pacemaker interrogated today and found to show normal function. No reprogramming was necessary. 5. Elevated troponin I. The patient has not been having any anginal type pain or discomfort. ECG not available for my review at this time. I very much doubt that this patient's elevated troponin I is due to primary NSTEMI. I suspect it is most likely due to prolonged hypotension earlier today. He appears compensated on examination and by chest x-ray. It will be important to rule out acute embolism as a cause of his syncope and elevated troponin I; therefore suggest chest CTA. Recommend additional serial cardiac enzymes and ECGs. At this point I would not transfer him for cardiac catheterization. Continue aspirin. Thank you kindly for asking me to participate in the care of your patient. Vital Signs/I&O Height (in): 69 Weight (kg): 61.7 BMI (kg): 20.1 Laboratory Data Labs 24H Laboratory Tests 2 04/22/16 10:33: Aspartate Amino Transf (AST/SGOT) 28, Alanine Aminotransferase (ALT/SGPT) 27, Alkaline Phosphatase 148H, Total Bilirubin 1.6H, Direct Bilirubin 0.7H, Albumin 3.4, Albumin/Globulin Ratio 1.03, Anion Gap 13, White Blood Count 11.1H, Red Blood Count 3.92L, Hemoglobin 12.9L, Hematocrit 40.8L, Mean Corpuscular Volume 104.2H, Mean Corpuscular Hemoglobin 33.0, Mean Corpuscular Hemoglobin Concent 31.7L, Red Cell Distribution Width 14.3, Platelet Count 100L, Neutrophils (%) ( Auto) 82.4H, Lymphocytes (%) (Auto) 9.9L, Monocytes (%) (Auto) 5.5H, Eosinophils (%) (Auto) 0.4, Basophils (%) (Auto) 0.4, Neutrophils # (Auto) 9.1H , Lymphocytes # (Auto) 1.3L, Monocytes # (Auto) 0.6, Eosinophils # (Auto) 0.0, Basophils # (Auto) 0.0, Calcium Level 8.7L, Creatine Kinase MB 5.2H, Creatine Kinase MB Relative Index 5.20H, Glomerular Filtration Rate 24.9L, Large Unclassified Cells # 0.2, Large Unclassified Cells % 1.4, Prothromb Time International Ratio 1.24, Prothrombin Time 15.7H, Thyroid Stimulating Hormone ( TSH) 2.580, Total Creatine Kinase 100, Total Protein 6.7, Troponin I 0.43H 04/22/16 12:44: Creatine Kinase MB 10.1H, Creatine Kinase MB Relative Index 7.89H, Total Creatine Kinase 128, Troponin I 1.34#H 04/22/16 15:18: CBC/BMP Laboratory Tests 04/22/16 10:33 Red Blood Count 3.92 L, Mean Corpuscular Volume 104.2 H, Mean Corpuscular Hemoglobin 33.0, Mean Corpuscular Hemoglobin Concent 31.7 L, Red Cell Distribution Width 14.3, Neutrophils (%) (Auto) 82.4 H, Lymphocytes (%) (Auto) 9.9 L, Monocytes (%) (Auto) 5.5 H, Eosinophils (%) (Auto) 0.4, Basophils (%) ( Auto) 0.4, Neutrophils # (Auto) 9.1 H, Lymphocytes # (Auto) 1.3 L, Monocytes # ( Auto) 0.6, Eosinophils # (Auto) 0.0, Basophils # (Auto) 0.0 Home Medications Scheduled Aspirin (Aspirin) 325 Mg Tab 325 MG PO DAILY (Reported) Atorvastatin Calcium (Atorvastatin Calcium) 20 Mg Tab 20 MG PO QPM (Reported) Cholecalciferol (Vitamin D3) 2,000 Unit Tab 2,000 UNIT PO DAILY (Reported) Doxazosin Mesylate (Cardura) 8 Mg Tab 8 MG PO DAILY (Reported) Furosemide (Lasix) 40 Mg Tab 40 MG PO BID (Reported) Guaifenesin (Mucinex) 600 Mg Tab 600 MG PO BID (Reported) Multivitamins *[facility] STOCKED* (Thera M Plus *[facility] STOCKED*) 1 Tab Tab 1 TAB PO DAILY (Reported) Salmeterol/Fluticasone (Advair Diskus 100-50 Mcg/Dose) 28 Puff/Inhaler Aerp 1 PUFF INH BID (Reported) Tiotropium [place] Monohydrate (Spiriva Handihaler) 18 Mcg Cap 1 INHALATION INH DAILY (Reported) Scheduled PRN Acetaminophen (Tylenol) 325 Mg Tab 650 MG PO Q4H PRN PRN PAIN / FEVER (Reported ) Albuterol Sulfate (Proair Hfa) 108 Mcg/Act Aer 2 PUFF INH Q4H PRN PRN SHORTNESS OF BREATH (Reported) Current Medications Current Medications Home Med (Med Rec Complete!) ASDIRECTED XX ; Start 04/22/16 at 14:30; Stop at 14:31; Status DC Allergies Allergies: Coded Allergies: Calcium (Verified Allergy, Unknown, 07/03/12) NANCY Inhibitors (Verified Adverse Reaction, Intermediate, LEG SWELLING, 07/03) Calcium Channel Blockers (Verified Adverse Reaction, Intermediate, LEG SWELLING, 07/03/12) Verapamil (Verified Adverse Reaction, Intermediate, LEG SWELLING, 07/03/12) Carvedilol (Verified Adverse Reaction, Mild, CRAMPS,DIARRHEA, 07/03/12) Lisinopril (Verified Adverse Reaction, Mild, CRAMPS,DIARRHEA, 07/03/12) Tetracycline (Verified Adverse Reaction, Mild, TONGUE BURNING/NAUSEA, ) Trandolapril (Verified Adverse Reaction, Mild, DAIRRHEA, 07/03/12) Denis Heaton Apr 22, 2016 15:57
[2016-04-22] MEDS ORDERED: ALBUTEROL 90 MCG/ACT 8GM HFA INHALER INH PRN (17:15)
[2016-04-22 17:21] LABS: BASO % 0.1 % (0.0-1.0); EOS % 0.1 % (0.0-3.0); LARGE UNSTAINED CELL # 0.1 K/mm3 (0.0-0.4); LARGE UNSTAINED CELL % 1.7 % (0.0-4.0); LYMPH % 11.7 % (24.0-44.0); MEAN CORPUSCULAR HEMOGLOBIN 33.2 pg (27.0-33.0); MEAN CORPUSCULAR HGB CONC 31.4 g/dl (32.0-36.5); MEAN CORPUSCULAR VOLUME 105.8 fl (80.0-96.0); MONO # 0.3 K/mm3 (0.0-0.8); MONO % 3.8 % (0.0-5.0); NEUTROPHILS # 6.9 K/mm3 (1.8-7.7); NEUTROPHILS % 82.7 % (36.0-66.0); RED CELL DISTRIBUTION WIDTH 13.4 % (11.5-14.5); WHITE BLOOD COUNT 8.4 K/mm3 (4.0-10.0)
[2016-04-22 17:42] LABS: PLATELET COUNT, AUTOMATED 96 k/mm3 (150-450)
[2016-04-22 17:43] LABS: ABG BASE EXCESS -5.2 (-2.0-2.0); ABG HCO3 19.3 MEQ/L (22.0-26.0); ABG PARTIAL PRESSURE CO2 34.1 mmHg (35.0-45.0); ABG PARTIAL PRESSURE O2 57.3 mmHg (75.0-100.0); ABG STANDARD HCO3 20.1 MEQ/L (22.0-26.0); ABG TOTAL CO2 20.3 MEQ/L (23.0-31.0)
[2016-04-22 17:58] LABS: ANION GAP 12 MEQ/L (8-16); BLOOD UREA NITROGEN 77 MG/DL (7-18); CALCIUM LEVEL 8.2 MG/DL (8.8-10.2); CARBON DIOXIDE LEVEL 25 MEQ/L (21-32); CHLORIDE LEVEL 105 MEQ/L (98-107); CREATININE FOR GFR 2.94 MG/DL (0.70-1.30); GLOMERULAR FILTRATION RATE 21.6 (>35); GLUCOSE, FASTING 188 MG/DL (83-110); POTASSIUM SERUM 4.1 MEQ/L (3.5-5.1); SODIUM LEVEL 142 MEQ/L (136-145)
[2016-04-22 18:10] LABS: FOLATE > 24.0 NG/ML (>5.4); VITAMIN B12 LEVEL 776 PG/ML (247-911)
--- NOTE | 2016-04-22 18:26 | HPE ---
DATE OF ADMISSION: 04/22/2016 PRIMARY CARE PROVIDER: Lavell Roman MD CHIEF COMPLAINT: Fall. HISTORY OF PRESENT ILLNESS: The patient is an 89-year-old man who has had worsening dyspnea on exertion for the last several weeks. Informs me that one week ago he became short of breath while loading groceries into his car in a parking lot and he collapsed in the parking lot. He did not seek medical attention at that time. He reportedly had his diuretic doubled by his primary care provider within recent days. The patient reports that this morning he woke up and immediately felt short of breath and lightheaded. Shortly thereafter he walked down to his kitchen and he lost consciousness. He was alone on both occasions. They were unwitnessed syncopal episodes. The patient found down by his family who brought him to the emergency room. At the present time the patient complains only of some mild pain on his left side of his chest with deep inspiration, but otherwise he has no specific complaints otherwise. He denies chest pressure prior to the incident, nausea, vomiting or diaphoresis. PAST MEDICAL HISTORY: Stage III chronic kidney disease. Diastolic congestive heart failure. Chronic obstructive pulmonary disease (COPD). Bradyarrhythmia requiring pacemaker insertion. Dyslipidemia. Benign prostatic hypertrophy (BPH). HOME MEDICATIONS: - Tylenol 650 mg every 4 hours as needed for pain or fever - Lasix 40 mg twice a day - albuterol 108 mcg inhaled every 4 hours as needed for shortness of breath. - aspirin 325 mg daily - Lipitor 20 mg every pm - vitamin D3 2000 units daily - doxazosin 8 mg daily - Mucinex 600 mg twice a day - multivitamin one tablet daily - Advair Diskus 150/50 inhaled twice a day - Spiriva HandiHaler 18 mcg inhaled daily ALLERGIES: No known drug allergies. PAST MEDICAL HISTORY: Pacemaker insertion. SOCIAL HISTORY: The patient is a former smoker. He lives with his . His daughter is very involved with his care. Reports that he is a DO NOT RESUSCITATE (DNR), DO NOT INTUBATE (DNI). His family will bring his medical order of life-sustaining treatment (MOLST) form in. FAMILY HISTORY: Noncontributory. REVIEW OF SYSTEMS: Negative other than HPI. PHYSICAL EXAMINATION: Blood pressure 106/54, pulse 56, respiratory rate 20, temperature 97.5, O2 saturation 92% on 3 liters nasal cannula. GENERAL: He is a frail elderly man sitting up in a stretcher. He appears to be in very mild respiratory distress with mild accessory muscle use. HEENT: He has poor dentition. Dry mucous membranes. He has elevation of central venous pressure. CARDIOVASCULAR: S1, S2. Bradycardic. RESPIRATORY: Actually fairly clear. There is some tenderness to palpation over the left side, however. He does not have significant pain. ABDOMEN: Benign. EXTREMITIES: No clubbing, cyanosis or appreciable edema. LABORATORY STUDIES: WBC 11.1, hemoglobin 12.9, hematocrit 40.8, platelet count is 100. Chemistry panel: Sodium 143, potassium 4.0, chloride 106, bicarbonate 24, BUN 76, creatinine 2.6. The patient's BUN baseline appears to be closer to 60. His creatinine also baseline appears to be closer to 2.2. T-bilirubin is slightly elevated at 1.6 with an elevated direct at 0.87. Alkaline phosphatase is slightly elevated at 148. Troponin initially was 0.43. In two hours it did triple to 1.34. BNP is from the 18th at 835. The patient's TSH within normal limits. IMAGING: The patient did have a CT scan of his head which revealed small vascular ischemic disease and moderate volume loss. He also had a chest x-ray which revealed cardiomegaly and chronic changes without any acute infiltrate. He subsequently did have a CT scan of his chest, which revealed multiple left-sided rib fractures involving ribs 3 through 9. A small amount of pleural fluid bilaterally. No pneumothorax seen. Left lower lobe pulmonary contusion. Suspicious 8 mm spiculated right upper lobe, merits followup. Cardiomegaly. ASSESSMENT AND PLAN: This is an 89-year-old man with syncope and troponinemia complicated by pulmonary contusion and rib fractures. 1. The patient initially presented with dyspnea and syncope. I spoke with Dr. Heaton of cardiology who has agreed to see the patient in formal consultation as well as do a pacemaker inspection. He suspects that the patient may have been over-diuresed. As such we will hold any further diuretics. Will check orthostatics. The patient has pleural effusions and on my exam appears to be a little bit volume up, however, at this time we will hold any further diuresis and monitor his renal function to see if it improves with cessation of diuretics. We will also switch from doxazosin to tamsulosin as per Dr. Heaton's recommendation. There is also concern for possible pulmonary embolism (PE). The patient is not tachycardic, however, he is hypoxic. I will check a V/Q scan to further evaluate. Would avoid IV contrast in the setting of his chronic kidney disease. Will monitor him on telemetry on the progressive care unit. 2. Rib fracture and pulmonary contusion. I spoke with Dr. Fink who has agreed to see the patient in consultation. He will likely have an epidural placed by anesthesia. 3. Troponinemia. The patient did have shortness of breath and lightheadedness prior to his syncopal episode. I did have concern that this may be acute coronary syndrome. Will continue trending cardiac enzymes and monitor in the progressive care unit. Dr. Heaton is following along with the patient closely. Will check serial EKGs. Dr. Heaton does not feel as though he would need transfer for cardiac catheterization at this time. Please note, the patient on aspirin and statin. He is not on a beta oren. Dr. Heaton did not feel as though that was warranted to re-initiate at this time. He feels as though the troponin may be secondary to pulmonary contusion. 4. Atrial fibrillation. The patient is on aspirin. He has refused anticoagulation in the past. As per Dr. Heaton he does not require any rate controlling agents. He has a single chamber pacemaker in place, placed by Dr. Heaton on the past. 5. Gastroesophageal reflux disease. The patient is continued on Protonix. 6. Vitamin D deficiency. He is continued on supplementation and multivitamin. 7. COPD. He is hypoxic, but likely related to pleural effusion, pulmonary contusion and rib fractures. Provide pain control. Continue with Spiriva, Advair, Xopenex. 8. Diastolic congestive heart failure. We are holding his diuretic. He is not on any antihypertensives. 9. Dyslipidemia. The patient is on Lipitor. 10. DVT prophylaxis. The patient is on heparin. DISPOSITION: The patient's clinical status remains somewhat guarded at this point. He is admitted to the progressive care unit to Dr. Trinidad's service through [facility].
[2016-04-22] MEDS ORDERED: fentaNYL 100 MCG/2 ML INJECTION (J3010) As Ordered ONE (18:45)
[2016-04-22] MEDS ORDERED: WALLBOXKEY XX PRN (19:00)
[2016-04-22] MEDS ORDERED: FENTANYL/BUPIVACAINE/NACL CADD 250 ML EPIDURAL SCH (19:00)
[2016-04-22] MEDS ORDERED: EPIDURAL/PCA KEYS XX PRN (19:00)
[2016-04-22] MEDS ORDERED: METOCLOPRAMIDE INJ 10MG/2ML VIAL (J2765) IV PRN (19:00)
[2016-04-22] MEDS ORDERED: diphenhydrAMINE INJ 50MG/ML VIAL (J1200) IV PRN (19:00)
[2016-04-22] MEDS ORDERED: NALOXONE INJ 0.4 MG/1 ML VIAL (J2310) IV PRN (19:00)
--- NOTE | 2016-04-22 19:00 | CR ---
DATE OF CONSULTATION: 04/22/2016 The patient is seen at the request of Dr. Maria Esther Alvarez and Dr. Hussein of the hospitalist service for syncope and fractured ribs. HISTORY OF PRESENT ILLNESS: The patient is an 89-year-old white male, who this morning after getting up out of bed arose and then felt very faint and lightheaded. He then fell to the ground. He remembers starting to fall but does not remember the end of the fall and found himself walking up on the ground between a chair and the wall having hit his left side. He was initially shortness of breath and in pain all along his lateral and posterior chest. It hurt when he took deep breaths. He was able to get to his feet. EMS brought him to the emergency room. The last few weeks he states that his Lasix has been markedly increased by Dr. Bella. He has underlying stage Anamaria's disease. He also states that he has lost about 30 pounds of weight, however the past year and not particularly in the last couple of weeks. He states that in the last few weeks he has also felt more lightheaded with dysequilibrium. He says that he has had increased nocturia but is not aware of having increase urinary output during the day. Before today he did not have any chest pain. He has had no fevers, chills, or sweats. There is no dysphagia and he states that he has been eating well. He has a cough with brown sputum production. He is a former smoker and has off and on bouts of bronchitis. He did however stop smoking 40 years ago of 1 pack per day. He complains of shortness of breath over the last few weeks additionally with exertion. Today when he got up he did fell not only light headed but he also felt short of breath. This has been happening the last couple of days. The shortness of breath is brought on with just minimal activity. He does complain however of orthopnea and is able to sleep in a flat bed without difficulty and does not wake up at night gasping for air. PAST MEDICAL ILLNESSES: 1. Stage 3 kidney disease. 2. Congestive heart failure (CHF). 3. Chronic obstructive pulmonary disorder (COPD). 4. Hypercholesterolemia. 5. Underlying atrial fibrillation with bradycardia status-post a pacemaker insertion. PAST SURGICAL HISTORY: The above pacemaker insertion. MEDICATIONS AT HOME: - vitamin D 2000 unit every day - Lipitor 20 mg every day - Lasix 120 mg twice a day - aspirin 325 mg every day - Spiriva 18 mcg 1 inhalation every day - Cardura 8 mg every day - ProAir 2 puffs every 4 hours - Tylenol 500 mg twice a day as needed for pain - multivitamins 1 every day - Mucinex 600 mg every 12 hours ALLERGIES: Has adverse reactions to NANCY inhibitors, carvedilol, lisinopril, tetracycline, verapamil and trandolapril. TRAVEL HISTORY: He has been to [facility] in the remote past. He was also in [facility] at the end of World War II. EXPOSURES: No dogs, cats, or birds at home. No known exposure to tuberculosis. FAMILY HISTORY: Mother of a stroke. Father shortly thereafter from unknown causes. HABITS: See history of present illness (HPI). 1 pack per day for approximately 30 years and quit 40 years ago. No alcohol at this time. REVIEW OF SYSTEMS: GENERAL: Without fevers, chills, sweats or night sweats but has had a 30 pound weight loss of a year. HEENT: Eyes: Without diplopia, without transient monocular blindness, without prior jaundice. Mouth: Has his own teeth. Nose: Without epistaxis. CARDIAC: See HPI. No prior history of myocardial infarctions. No intermittent claudication. Has noted that his legs have been swelling up from which he has been taking increased Lasix. PULMONARY: See history of present illness. GASTROINTESTINAL: Without nausea, vomiting, diarrhea, constipation, melena, hematochezia, hematemesis or abdominal pain. GENITOURINARY: Without dysuria or hematuria. Without prior renal stones. Does have the stage 3 renal failure. He is seen and followed by Dr. Bella.. ENDOCRINE: Without diabetes, without tyroid disease. NEUROLOGIC: Without paresthesia, paralysis or prior seizures. LYMPHATIC: Without lumps or bumps in his neck, axilla, or groins. HEMATOLOGIC: Without prolonged bleeding times. PHYSICAL EXAMINATION: GENERAL: He is a well-developed, well-nourished, white male in mild to moderate distress from chest pain. VITAL SIGNS: Blood pressure 106/54, pulse 56 in and out of a paced rhythm. Respiratory rate 20 without the use of accessory muscles. He is 92% saturated on 3 liters nasal cannula. Temperature 97.5. EYES: Pupils equal, round, reactive to light. Extraocular muscles intact. Sclerae nonicteric. Head is normocephalic. Nose without deformity. Mouth shows mucous membranes to be pink and moist. Lips and commissures without lesions. Teeth are in fairly good repair. There is no thrush. NECK: Supple. There is some mild jugular venous distention (JVD), maybe a centimeter or 2 above the clavicular border. He has 2+ carotid pulses. No bruits. Trachea is midline. There is no subcutaneous emphysema. LUNGS: Show rhonchus sounds on both sides, most of which would clear with coughing. Percussion was full to the diaphragm. He has more rhonchus sounds on the left than the right. CARDIAC: Without murmurs, clips, gallops or rubs. I cannot feel his point of maximum impulse (PMI). S1, S2 are normal. ABDOMEN: Soft, nontender. Bowel sounds positive. There is no hepatomegaly. No costovertebral angle tenderness on the right. There is costovertebral angle tenderness on the left referable to his rib fractures. EXTREMITIES: Trace pretibial edema. No calf tenderness. No differential swelling of the upper extremities. SKIN: Warm, dry and perfused without cyanosis or mottling, including that of the nail beds and knees. NEUROLOGIC: Shows II through XII intact. Gross motor and gross sensation intact. Gait is not tested. PSYCHIATRIC: Shows him to be awake and alert, oriented times three with an appropriate mood and affect and conversational. INVESTIGATIONS: His white count today is 11.1 with a hemoglobin and hematocrit of 12.9 and 40.8. Platelet count is 100. Differential shows 82% neutrophils, 9% lymphocytes, 5% monocytes. There are no immature forms. No toxic granulations. Chemistries today show electrolytes are normal with a BUN and creatinine of 76 and 2.6. His prior creatinines have varied between 2.7 over the past year. Total bilirubin is 1.6 with an AST and ALT which are normal at 28 and 27 respectively. Alkaline phosphatase is 1.48. Albumin is 3.4. Troponin has risen to 2.08. CKMB is 10.1. Blood gases are not yet drawn. His DC/INR are 15.7 and 1.24 respectively. Chest x-ray done in the emergency room portably shows sharp costophrenic angles. Lungs are fully expanded to the chest wall. It looks as though he has some cephalization of vessels but it is a portable semi-upright film. His heart is a bit globular , but again it is an AP film. His chest CT done without contrast shows six rib fractures, ribs 3 through 8. Underneath his rib fractures is some pleural thickening and maybe a small miniscule hemothorax inferiorly. There is a infiltrative process in the inferior-posterior medical left lower lobe. I can not tell whether this is inflammatory of possibly malignant. He has a 0.8 cm small mass in the right upper lobe, seen best on image 71.13. This is spiculated and measures 8 mm. He looks to have some bronchiectasis on the coronal views in both lower lobes. There is no pericardial effusion. Great vessels are intact and there is no mediastinal hematoma. EKG is still pending. I will look at it as soon as it is done. IMPRESSION: 1. Multiple left sided rib fractures without a flail segment. 2. Small hemothorax versus pleural thickening. 3. Possible lung contusion. 4. Troponin and CPK rise. 5. Congestive heart failure (CHF). 6. Chronic obstructive pulmonary disease (COPD). 7. Rule out pulmonary embolism. 8. Syncope, unknown origin. 9. Possible dehydration secondary to Lasix. 10. Renal failure stage 3. PLAN/DISCUSSION: As far as the rib fractures are concerned, I will have anesthesia place an epidural. That should help with his pain control. I am concerned that he has a lot of secretions down in both lungs in particularly the left secondary to splinting and pain. We will put him on some spirometry and positive expiratory pressure (PEP) therapy. I would highly suggest that we investigate the possibility of pulmonary embolism (PE) as his history, as related to me, says that he was short of breath suddenly this morning upon awakening and suddenly a couple of days ago. I do see bilateral trace pretibial edema and an ultrasound of his legs at least would be in order. He is not on anticoagulation so we can undertake an epidural. I am not sure why he is not on anticoagulation however, because he is in chronic atrial fibrillation. There is a history of him having refused anticoagulation in the past. We will review the EKG to see if there is an acute cardiac event. This just may be heart failure with transient ischemic rise. At the end of the day, historically, what it sounds like is that he is intravascularly dry secondary to increased diuresis which is causing him to be lightheaded the last few weeks. That may have caused his syncope. We will closely monitor him. Dr. Heaton has already been consulted and tells me that is pacemaker is working well and this probably not to account for his syncope.
[2016-04-22] MEDS ORDERED: FENTANYL 2MCG/ML BUPIVACAINE 0.0625% NACL 250ML CADD As Ordered ONE (19:04)
[2016-04-22] MEDS ORDERED: fentaNYL 100 MCG/2 ML INJECTION (J3010) IV SCH (19:30)
[2016-04-22] MEDS ORDERED: LR 500 ML IV SCH (19:30)
[2016-04-22] MEDS ORDERED: ePHEDrine SULFATE 25 MG/5 ML(5MG/ML) SYRINGE As Ordered ONE (19:52)
[2016-04-22] MEDS ORDERED: PHENYLephrine HCL 500 MCG/5 ML (100MCG/ML) SYRINGE (J2370) As Ordered ONE (19:52)
[2016-04-22] MEDS ORDERED: PHENYLEPHRINE INJ 10MG/ML VIAL (J2370) As Ordered ONE (19:52)
[2016-04-22] MEDS ORDERED: TAMSULOSIN 0.4 MG CAP PO SCH (21:00)
[2016-04-22] MEDS: ADVAIR DISKUS 100/50 INH PWD INH SCH (21:00)
[2016-04-22] MEDS ORDERED: PHENYLEPHRINE INJ 10MG/ML VIAL (J2370) XX SCH (21:00)
[2016-04-22] MEDS ORDERED: ATORVASTATIN 20 MG TAB PO SCH (21:00)
[2016-04-22] MEDS: PHENYLEPHRINE HCL INJ 50 MG in D5W 500 ML IV SCH ×2 (21:00→23:30)
[2016-04-22] MEDS: LEVALBUTEROL 1.25 MG/0.5 ML CONCENTRATE NEB NEB SCH (21:19)
[2016-04-22 21:24] LABS: ABG BASE EXCESS -4.5 (-2.0-2.0); ABG HCO3 20.7 MEQ/L (22.0-26.0); ABG PARTIAL PRESSURE CO2 38.4 mmHg (35.0-45.0); ABG PARTIAL PRESSURE O2 76.1 mmHg (75.0-100.0); ABG STANDARD HCO3 20.7 MEQ/L (22.0-26.0); ABG TOTAL CO2 21.9 MEQ/L (23.0-31.0); ABG pH (ARTERIAL) 7.349 UNITS (7.350-7.450)
[2016-04-22] MEDS: guaiFENesin ER 600 MG TAB PO SCH (21:25)
[2016-04-22] MEDS: DOCUSATE SODIUM 100 MG CAP PO SCH (21:25)
[2016-04-22] MEDS: HEPARIN SOD (PORCINE) 5000 UNITS/ML VIAL SC SCH (21:26)
[2016-04-23] VITALS (41 sets, daily range): BP systolic 80–112; BP diastolic 42–68
--- NOTE | 2016-04-23 01:10 | ECGEPIP ---
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 Sawyer: ct : 1925 Requested By: CONSTANTINE JACOBO Order Number: [id number] Reading MD: Zaire Horne Measurements Intervals [place] Rate: 56 P: [place]: 0 QRS: 19 QRSD: 72 T: -80 QT: 452 QTc: 439 Interpretive Statements UNCERTAIN IRREGULAR RHYTHM ELECTRONIC VENTRICULAR PACEMAKER -- CONTOUR ANALYSIS BASED ON INTRINSIC RHYTHM LOW QRS VOLTAGE IN EXTREMITY LEADS POSSIBLE ANTEROSEPTAL MYOCARDIAL INFARCTION, OF INDETERMINATE AGE MODERATE T-WAVE ABNORMALITY, CONSIDER LATERAL ISCHEMIA NO SIGNIFICANT CHANGES FROM 07/14/12 BUT PACEMAKER ACTIVITY Electronically Signed On 04-23-2016 1:10:31 EST by Zaire Horne
[2016-04-23] MEDS: LEVALBUTEROL 1.25 MG/0.5 ML CONCENTRATE NEB NEB SCH ×4 (01:42→19:29)
[2016-04-23 05:10] LABS: DIFF SLIDE NUMBER 77; MEAN CORPUSCULAR HEMOGLOBIN 33.4 pg (27.0-33.0); MEAN CORPUSCULAR HGB CONC 31.6 g/dl (32.0-36.5); MEAN CORPUSCULAR VOLUME 105.9 fl (80.0-96.0); RED CELL DISTRIBUTION WIDTH 13.2 % (11.5-14.5); WHITE BLOOD COUNT 4.4 K/mm3 (4.0-10.0)
[2016-04-23 05:29] LABS: CALCIUM LEVEL 7.9 MG/DL (8.8-10.2); CREATININE FOR GFR 3.04 MG/DL (0.70-1.30); GLOMERULAR FILTRATION RATE 20.8 (>35); POTASSIUM SERUM 4.3 MEQ/L (3.5-5.1)
[2016-04-23 05:35] LABS: PLATELET COUNT, AUTOMATED 86 k/mm3 (150-450)
[2016-04-23 05:41] LABS: BANDS 5 % (< 11)
[2016-04-23 05:42] LABS: BURR CELLS 2+
[2016-04-23 06:13] LABS: ABG BASE EXCESS -6.1 (-2.0-2.0); ABG HCO3 19.4 MEQ/L (22.0-26.0); ABG PARTIAL PRESSURE CO2 38.5 mmHg (35.0-45.0); ABG PARTIAL PRESSURE O2 63.3 mmHg (75.0-100.0); ABG STANDARD HCO3 19.4 MEQ/L (22.0-26.0); ABG TOTAL CO2 20.6 MEQ/L (23.0-31.0); ABG pH (ARTERIAL) 7.321 UNITS (7.350-7.450)
--- NOTE | 2016-04-23 07:29 | ECGEPIP ---
Stationary ECG Study [facility] - ED Test Date: 2016-04-22 Pat Name: SACHI MELENDEZ Department: Room: - Gender: M Bear Keeper: [facility] : 1925 Requested By: Maria Esther Garcia Order Number: [id number] Reading MD: Maria Esther Garcia Measurements Intervals [place] Rate: 63 P: [place]: 0 QRS: 25 QRSD: 73 T: 180 QT: 416 QTc: 427 Interpretive Statements ATRIAL FIBRILLATION LOW QRS VOLTAGE IN EXTREMITY LEADS SEPTAL MYOCARDIAL INFARCTION, OF INDETERMINATE AGE MODERATE T-WAVE ABNORMALITY, CONSIDER ANTEROLATERAL ISCHEMIA SIMILAR 04/22/16 Electronically Signed On 04-23-2016 7:29:04 EST by Maria Esther Garcia
[2016-04-23] MEDS: ADVAIR DISKUS 100/50 INH PWD INH SCH (07:58)
[2016-04-23] MEDS ORDERED: MOM 30ML SUSPENSION UDC PO SCH (09:00)
[2016-04-23] MEDS ORDERED: ASPIRIN 325 MG TAB PO SCH (09:00)
[2016-04-23] MEDS ORDERED: MULTIVITAMINS/MINERALS THERAP 1 TAB PO SCH (09:00)
[2016-04-23] MEDS ORDERED: TIOTROPIUM INHALER/CAPSULE (SPIRIVA) INH SCH (09:00)
[2016-04-23] MEDS: HEPARIN SOD (PORCINE) 5000 UNITS/ML VIAL SC SCH ×2 (09:00→20:18)
[2016-04-23] MEDS ORDERED: VITAMIN D 1,000 INTERNATIONAL UNITS TABLET PO SCH (09:00)
[2016-04-23] MEDS: DOCUSATE SODIUM 100 MG CAP PO SCH (09:00)
[2016-04-23] MEDS ORDERED: PANTOPRAZOLE 40MG INJ (PROTONIX) (C9113) IV SCH (09:00)
[2016-04-23] MEDS ORDERED: DOXAZOSIN MESYLATE 4 MG TAB PO SCH (09:00)
[2016-04-23] MEDS: guaiFENesin ER 600 MG TAB PO SCH ×2 (09:00→20:18)
[2016-04-23] MEDS ORDERED: PANTOPRAZOLE 40MG TAB (PROTONIX) PO SCH (09:00)
--- NOTE | 2016-04-23 09:20 | REP ---
PORTABLE CHEST X-RAY: Semi-erect upright view. HISTORY: Rib fracture. Comparison chest x-ray April 22, 2016. FINDINGS: Epidural catheter, EKG monitoring electrodes, and left transvenous pacemaker leads are seen. Moderate cardiomegaly is again observed. There is no evidence of pneumothorax or hydrothorax. There is linear opacity in the right base consistent with plate-like atelectasis or fibrosis. Vascular and interstitial markings are slightly prominent. No evidence of pleural effusion. No definite focal infiltrate. Signed by Alejandro Wang MD 04/23/2016 09:50 A
--- NOTE | 2016-04-23 11:05 | IPNPDOC ---
Assessment/Plan Date Seen The patient was seen on 04/23/16. Problems Problems: (1) Hypotension Status: Acute Discussed With: Nurse, Patient, Family with Pt Consent Problem Specific Plan: Monitor Clinically Problem Text: on phenylephrine up to 110 mcg/min-SBP still 70; therefore, held epidural at 1300 c rise to 90 case d/w Dr. Antwan APONTE s tamponade, elevated CVP, severe PHTN since 2006! He favors [employer] as do I-case d/w daughter and son, HCPs, they are leaning towards [employer] . (2) Ribs, multiple fractures Status: Acute Response to Treatment: Stable Problem Specific Plan: Monitor Clinically Problem Text: Currently with epidural, pain is controlled, asked nursing to reduce rate from 4 to 3 to see if this helps with his hypotension. (3) Elevated troponin I level Status: Acute Problem Specific Plan: Monitor Clinically, Repeat Labs Problem Text: Dr Heaton consulted, did not feel transfer for cath appropriate at this time, feels likely secondary to pulmonary contusion. (4) Pulmonary contusion Status: Acute (5) A-fib Status: Chronic Response to Treatment: Stable Problem Specific Plan: Monitor Clinically Problem Text: Rate controlled with rate controlling agents, not on anticoagulation. Pt has refused this in the past. (6) GERD (gastroesophageal reflux disease) Status: Chronic Problem Specific Plan: Monitor Clinically Plan / VTE VTE Prophylaxis Ordered?: Yes Subjective Review of Systems CC/HPI Called into the pts room this morning. The nurse was asked by Dr Fink to get the pt out of bed. Pt sat up onto the edge of the bed with assist, he then stood with assist, paused, slumped backwards onto the bed, become confused and with decreased responsiveness. When I got into the room the pt was back in bed , arouse to voice, answered questions appropriately and followed commands, his SBP was 80, during the event his pacer activated. Family was at bedside, witnessed event. ENT: Denies: Head Aches Pulmonary: Reports: Cough, Dyspnea Cardiovascular: Reports: Chest Pain, Lt Headedness Gastrointestinal: Denies: Diarrhea, Nausea, Vomiting Musculoskeletal: Reports: Back Pain Neurological: Reports: Weakness Psych: Reports: Mood Normal Objective Physical Examination General Exam: Positive: Alert (Pt becoming increasingly alert as I stayed in the room.), No Acute Distress ENT Exam: Positive: Mucous membr. moist/pink Chest Exam: Positive: Clear to auscultation, Diminished Heart Exam: Positive: Normal S1, Normal S2, Rate Normal Abdomen Exam: Positive: Normal bowel sounds, Soft, Tenderness Extremity Exam: Negative: Edema Vital Signs/I&O Vital Signs Date Time Temp Pulse Resp B/P Pulse Ox O2 Delivery O2 Flow Rate FiO2 04/23/16 08:00 Venturi Mask 40 04/23/16 06:00 75 20 107/57 92 04/23/16 04:00 96.8 04/22/16 21:39 4.0 I&O- Last 24 Hours up to 6 AM 04/23/16 06:00 Intake Total 1345 ml Output Total 0 ml Balance 1345 ml Laboratory Data Labs 24H Laboratory Tests 2 04/22/16 10:33: Aspartate Amino Transf (AST/SGOT) 28, Alanine Aminotransferase (ALT/SGPT) 27, Alkaline Phosphatase 148H, Total Bilirubin 1.6H, Direct Bilirubin 0.7H, Albumin 3.4, Albumin/Globulin Ratio 1.03, Anion Gap 13, White Blood Count 11.1H, Red Blood Count 3.92L, Hemoglobin 12.9L, Hematocrit 40.8L, Mean Corpuscular Volume 104.2H, Mean Corpuscular Hemoglobin 33.0, Mean Corpuscular Hemoglobin Concent 31.7L, Red Cell Distribution Width 14.3, Platelet Count 100L, Neutrophils (%) ( Auto) 82.4H, Lymphocytes (%) (Auto) 9.9L, Monocytes (%) (Auto) 5.5H, Eosinophils (%) (Auto) 0.4, Basophils (%) (Auto) 0.4, Neutrophils # (Auto) 9.1H , Lymphocytes # (Auto) 1.3L, Monocytes # (Auto) 0.6, Eosinophils # (Auto) 0.0, Basophils # (Auto) 0.0, Calcium Level 8.7L, Creatine Kinase MB 5.2H, Creatine Kinase MB Relative Index 5.20H, Glomerular Filtration Rate 24.9L, Large Unclassified Cells # 0.2, Large Unclassified Cells % 1.4, Prothromb Time International Ratio 1.24, Prothrombin Time 15.7H, Thyroid Stimulating Hormone ( TSH) 2.580, Total Creatine Kinase 100, Total Protein 6.7, Troponin I 0.43H 04/22/16 12:44: Creatine Kinase MB 10.1H, Creatine Kinase MB Relative Index 7.89H, Total Creatine Kinase 128, Troponin I 1.34#H 04/22/16 15:18: Troponin I 2.08#*H 04/22/16 17:06: Anion Gap 12, White Blood Count 8.4, Red Blood Count 3.87L, Hemoglobin 12.8L, Hematocrit 40.9L, Mean Corpuscular Volume 105.8H, Mean Corpuscular Hemoglobin 33.2H, Mean Corpuscular Hemoglobin Concent 31.4L, Red Cell Distribution Width 13.4, Platelet Count 96L, Neutrophils (%) (Auto) 82.7H, Lymphocytes (%) (Auto) 11.7L, Monocytes (%) (Auto) 3.8, Eosinophils (%) (Auto) 0.1, Basophils (%) (Auto ) 0.1, Neutrophils # (Auto) 6.9, Lymphocytes # (Auto) 1.0L, Monocytes # (Auto) 0.3, Eosinophils # (Auto) 0.0, Basophils # (Auto) 0.0, Calcium Level 8.2L, Glomerular Filtration Rate 21.6L, Large Unclassified Cells # 0.1, Large Unclassified Cells % 1.7, Troponin I 2.86#*H, B-Type Natriuretic Peptide 1320H, Blood Urea Nitrogen 77H, Creatinine 2.94H, Sodium Level 142, Potassium Level 4.1 , Chloride Level 105, Carbon Dioxide Level 25, Folate > 24.0, Vitamin B12 Level 776 04/22/16 17:35: Arterial Blood pH 7.370, Arterial Blood Partial Pressure CO2 34.1L, Arterial Blood Partial Pressure O2 57.3L, Arterial Blood Total CO2 20.3L, Arterial Blood HCO3 19.3L, Arterial Blood Base Excess -5.2L, Arterial Blood Oxygen Saturation 88.9L, Blood Gas Bicarbonate Standard 20.1L 04/22/16 21:17: Arterial Blood pH 7.349L, Arterial Blood Partial Pressure CO2 38.4, Arterial Blood Partial Pressure O2 76.1, Arterial Blood Total CO2 21.9L, Arterial Blood HCO3 20.7L, Arterial Blood Base Excess -4.5L, Arterial Blood Oxygen Saturation 94.0L, Blood Gas Bicarbonate Standard 20.7L 04/23/16 04:50: Anion Gap 16, Atypical Lymphocytes 3, B-Type Natriuretic Peptide 1040H, Band Neutrophils 5, Azeem Cells 2+, Blood Urea Nitrogen 81H, Creatinine 3.04H, Sodium Level 140, Potassium Level 4.3, Chloride Level 104, Carbon Dioxide Level 20L, Calcium Level 7.9L, Glomerular Filtration Rate 20.8L, Lymphocytes (Manual) 28, Macrocytosis 2+, Monocytes (Manual) 3, Neutrophils 61, Platelet Estimate DECREASED, Red Blood Cell Morphology NORMAL, Troponin I 3.13*H 04/23/16 05:51: Arterial Blood pH 7.321L, Arterial Blood Partial Pressure CO2 38.5, Arterial Blood Partial Pressure O2 63.3L, Arterial Blood Total CO2 20.6L, Arterial Blood HCO3 19.4L, Arterial Blood Base Excess -6.1L, Arterial Blood Oxygen Saturation 90.7L, Blood Gas Bicarbonate Standard 19.4L 04/23/16 09:16: Troponin I 2.99*H CBC/BMP Laboratory Tests 04/22/16 10:33 Red Blood Count 3.92 L, Mean Corpuscular Volume 104.2 H, Mean Corpuscular Hemoglobin 33.0, Mean Corpuscular Hemoglobin Concent 31.7 L, Red Cell Distribution Width 14.3, Neutrophils (%) (Auto) 82.4 H, Lymphocytes (%) (Auto) 9.9 L, Monocytes (%) (Auto) 5.5 H, Eosinophils (%) (Auto) 0.4, Basophils (%) ( Auto) 0.4, Neutrophils # (Auto) 9.1 H, Lymphocytes # (Auto) 1.3 L, Monocytes # ( Auto) 0.6, Eosinophils # (Auto) 0.0, Basophils # (Auto) 0.0 04/22/16 17:06 Red Blood Count 3.87 L, Mean Corpuscular Volume 105.8 H, Mean Corpuscular Hemoglobin 33.2 H, Mean Corpuscular Hemoglobin Concent 31.4 L, Red Cell Distribution Width 13.4, Neutrophils (%) (Auto) 82.7 H, Lymphocytes (%) (Auto) 11.7 L, Monocytes (%) (Auto) 3.8, Eosinophils (%) (Auto) 0.1, Basophils (%) ( Auto) 0.1, Neutrophils # (Auto) 6.9, Lymphocytes # (Auto) 1.0 L, Monocytes # ( Auto) 0.3, Eosinophils # (Auto) 0.0, Basophils # (Auto) 0.0, Calcium Level 8.2 L 04/23/16 04:50 Red Blood Count 3.85 L, Mean Corpuscular Volume 105.9 H, Mean Corpuscular Hemoglobin 33.4 H, Mean Corpuscular Hemoglobin Concent 31.6 L, Red Cell Distribution Width 13.2, Calcium Level 7.9 L Microbiology Microbiology 04/22/16 MRSA Screen, Received Pending PHYLLIS OVALLE PA-C Apr 23, 2016 11:05 Isaac Trinidad M.D. Apr 23, 2016 13:46
[2016-04-23] MEDS: PHENYLEPHRINE HCL INJ 50 MG in D5W 500 ML IV SCH (14:23)
[2016-04-23] MEDS ORDERED: NOREPINEPHRINE 4 MG/4 ML AMP As Ordered ONE (15:13)
[2016-04-23] MEDS ORDERED: NOREPINEPHRINE BITARTRATE 8 MG in D5W 500 ML IV SCH (15:45)
--- NOTE | 2016-04-23 16:44 | REP ---
Portable chest x-ray: Supine single view. History: Line placement. Comparison study earlier this date. Right subclavian line is now directed downward in the position consistent with superior vena cava. An epidural catheter is noted in place. A left-sided pacemaker is seen in the right heart. Cardiomegaly is observed. There is some respiratory motion artifact on the current exposure. There is no visible pneumothorax. Impression: Right subclavian line directed downwards towards the superior vena cava. No evidence of pneumothorax. Cardiomegaly. Signed by Alejandro Wang MD 04/23/2016 04:58 P
--- NOTE | 2016-04-23 16:48 | REP ---
Portable chest x-ray: Single view. 03:36 p.m. film. Comparison study is from 08:22 a.m. History: Central line placement. Findings: Moderate cardiomegaly is observed. EKG monitoring electrodes overlie the chest. There is a unipolar pacer in the right heart via the left side. Epidural catheter is seen. There is a right subclavian line which is seen coursing upwards into the right neck consistent with internal jugular venous cannulation. There is no evidence of pneumothorax. Impression: The right internal jugular line courses upwards in the right neck. There is no evidence of pneumothorax. Signed by Alejandro Wang MD 04/23/2016 04:59 P
--- NOTE | 2016-04-23 17:11 | IPN ---
DATE: 04/23/2016 Mr. Orellana had a difficult night last night. We placed the epidural, and he immediately became hypotensive. That was somewhat counteracted with a phenylephrine drip, and he was placed in the intensive care unit (ICU). Today, he is congested with lots of secretions, which he cannot seem to mobilize. He is basically pain-free without coughing but when he starts to cough, he hurts. I am not sure if he has the strength to completely expectorate his sputum. See my discussion below, but I did speak with Dr. Moncada this afternoon, who knows the patient well. Dr. Moncada informs me that he has very severe pulmonary hypertension with cor pulmonale and right heart failure. That in and of itself could explain his syncopal episode. Again, see discussion below. His vital signs show a maximum temperature (T max) of 96.8 with a heart rate that ranges between 71 and 63 in and out of paced rhythm, respiratory rate is 18 to 20 without the use of accessory muscles with lots of gurgling. He is 92 to 91% saturated on a 40% Venturi mask. Blood pressure is ranging now between 98/55 to 111/58 on a phenylephrine drip. His intake and output over the past 24 hours has been recorded as 1045 in and 0 out for a positivity of a liter. He weighs 62 kg today compared to 61.69 kg yesterday. PHYSICAL EXAMINATION: His lungs show very coarse rhonchi throughout which do not clear with coughing. He has inspiratory rales and rhonchi along with expiratory rhonchi. Percussion note is full to the diaphragm. His back and lateral chest are tender to touch but not exquisitely so. Cardiac exam is without murmurs, clicks, gallops or rubs. I cannot feel his point of maximum impulse (PMI). S1, S2 are normal. Abdomen is tympanitic but nontender. Bowel sounds are present but hypoactive. There is no hepatomegaly. There is no right costovertebral angle tenderness. There is left costovertebral angle tenderness referable to his rib fractures. Extremities show 1+ pretibial edema, slightly more on the right than the left. There is no calf tenderness. No differential swelling of the upper extremities. His skin is warm, dry and perfused without a cyanotic hue to them. That includes the nail beds and the knees. There is no mottling of the knees. Neck is supple. There is jugular venous distention now up to the angle of the jaw. Trachea is midline. There is no subcutaneous emphysema. Mouth shows his mucous membranes to be pink and moist. Lips and commissures without lesions. There is no thrush. Eyes show his pupils to be equal and reactive. Extraocular motions are intact. Sclerae anicteric. Neurologic shows gross motor and gross sensation intact, along with gross II-XII intact. Gait is not tested. Psychiatric shows him to be awake and alert. His white count is 4.4 with a hemoglobin and hematocrit of 12.9 and 40.7 and a platelet count of 86. Differential shows 61% neutrophils, 5% bands, 28% lymphocytes, 3% monocytes. He now shows more immature forms than he did on admission yesterday. His chemistries show a sodium of 140 with a potassium of 4.3. BUN and creatinine are 81 and 3.04 respectively with a glucose of 121 and a calcium of 7.9. His creatinine is now 3.04. His beta natriuretic peptide is 1320. Troponin continued to rise from 0.43 to 1.34 and up to a maximum of 3.13. It now looks as though the troponins are starting to trend down to 2.99. His EKG yesterday did not show any acute changes but did show very low voltages throughout all the leads. There is some T-wave inversion in the lateral leads which could indicate ischemia. His chest x-ray this morning was done portably as he had another syncopal episode and could not be brought down to the x-ray department. It shows cephalization of vessels with a generous heart, and, indeed, rather globular. IMPRESSION: 1. Multiple fractured ribs, left side, six in number. 2. Lung contusion. 3. Syncope. 4. Hypotension secondary to epidural. 5. Right heart failure. 6. Cor pulmonale. 7. Pulmonary hypertension. 8. Chronic obstructive pulmonary disease (COPD). 9. Underlying atrial fibrillation, not anticoagulated. 10. Stage III kidney disease, renal insufficiency and failure, getting worse. PLAN AND DISCUSSION: As noted in the introduction, he has severe pulmonary hypertension and cor pulmonale along with right heart failure. I did place a CVP in him prior to speaking with Dr. Moncada. His CVP was 17. CVP was placed more to change him over from phenylephrine where we have now maxed out to Levophed in order to keep his blood pressure in the 100 to 110 systolic range. Hopefully that will allow us to go from the epidural and relieve some of his pain with coughing so he can mobilize his secretions. If the secretions cannot be mobilized well, he is certainly at risk for pneumonia. While I do not see an elevated white count, I do see a left shift beginning. It looks as though he may be at least leukopenic and thrombocytopenic. I have asked Dr. Bella to see him with regards to his renal insufficiency. I have had a long talk with his family, both his daughter and his brother. I have a sinking feeling that this is going to be the cause of his eventual demise if we cannot get him to mobilize his secretions. I think he had had some type of a coronary event and whether that is secondary to acute dilation of the right heart with an increased beta natriuretic peptide and troponins or if he has actually had a coronary event consistent with a myocardial infarction is just conjecture at this point in time. The bottom line is that if he has had a coronary event, there is no satisfactory intervention to prompt sending him for a coronary angiogram. It would be conceivable that he could be placed on comfort measures only, which would include the epidural and, indeed, the Levophed in order to maintain his pain control. It is sad that a bunch of rib fractures will start his downward spiral to his demise. I will continue to treat his rib fractures with pain control and with attempted chest expansion therapy and mobilization of his secretions. The family understands this thinking and is in agreement that he should not be resuscitated nor intubated. The family also informs me that that is also the patient's wishes that he has thought through prior to this episode.
[2016-04-23] MEDS ORDERED: SCOPOLAMINE 1.5 MG TRANSDERMAL TD PRN (17:15)
--- NOTE | 2016-04-23 18:03 | IPN ---
DATE: 04/23/2016 CARDIOLOGY PROGRESS NOTE SUBJECTIVE: At this time, the patient claims to be in distress because of his chest pain/rib fractures. Had been temporarily taken off his epidural anesthetic because of relative hypotension, requiring vasopressor administration. Patient currently has a triple-lumen central venous line for access for these agents. He continues to have shortness of breath. OBJECTIVE: Thin, distressed elderly male, lying with the head of the bed elevated 30 degrees. Wearing a face mask, supplemental oxygen. Heart rate 76 beats per minute and irregular, blood pressure 91/60, respiratory rate 24 per minute, oxygen saturation 90% on 40% oxygen by mask. Afebrile. Normal oral moisture. Trachea midline. Neck veins were markedly elevated. Increased anteroposterior chest diameter with reduced chest excursion. Has documented rib fractures with lung contusion, resulting in reduced air entry over the left chest. Fine diffuse inspiratory rales. Garfield not palpable. Heart sounds distant. Difficult to discern with his coarse inspiratory and expiratory airway sounds due to secretions. Soft abdomen with obvious pitting edema up to the knees bilaterally. air sampling and monitoring: Remains in atrial fibrillation with controlled ventricular response, rate currently 72 beats per minute (BPM) and irregular. Occasional ventricular paced complex. Appropriate to VVI pacing with low rate s at 50 BPM. Chest x-ray: Study done earlier this afternoon following central line placement shows persistent cardiomegaly with pacemaker/pulse generator, left subclavian region. Right subclavian catheter with tip terminating in the superior vena cava. Epidural catheter in place. The patient has a small left pleural effusion with pulmonary fibrosis and hyperinflated lung díaz. LABORATORY DATA: Hemoglobin 12.9. Normal white blood cell count and platelet count. Arterial blood gas this morning showed a pH of 7.3, pCO2 of 38.5, pO2 of 63. Chemistry this morning showed a degree of metabolic acidosis, but other electrolytes were normal. BUN has increased to 81 with creatinine increasing to 3.0, glucose 121. peak troponin I was 3.1. IMPRESSION AND PLAN: 1. Chest pain: Unfortunately, being off his epidural earlier today, patient is suffering with his rib fracture pain. I have spoken frankly with his family regarding his advanced cor pulmonale and right heart failure, and everyone at this time is in favor of comfort measures. His epidural has already been resumed earlier with adjustment of vasopressor therapy. At this point, we plan to increase his epidural therapy to render him pain free, recognizing that this is our most important and perhaps only real care we can provide for him at this stage of his life. 2. Hypotension: Likely multifactorial, including his severe cor pulmonale/pulmonary hypertension with echocardiogram performed earlier today estimating his pulmonary atrial systolic pressure of 85-90 mm of mercury. His right heart is quite dilated, and inferior vena cava was dilated with absent respiratory collapse, in keeping with his central venous measured pressure of at least 17 mm of mercury. His epidural anesthetic may very well be contributing. 3. Acute coronary syndrome: Not having ischemic chest pain. No followup electrocardiogram (EKG) today. Serial troponin I levels have increased, likely related to his relative hypotension and probable underlying ischemic heart disease versus additional right ventricular strain with his respiratory distress superimposed on his severe underlying pulmonary hypertension. As mentioned above, pain relief would be considered lua. 4. Atrial fibrillation (chronic): Ventricular response controlled without negative chronotropic therapy. Has refused anticoagulation in the past. 5. Atrioventricular (AV) block/pacemaker in situ: His device appears to be functioning appropriately, as mentioned above. No reprogramming would be deemed necessary. 6. Cor pulmonale: Dating back to 2006, echocardiographic study showed pulmonary arterial pressures well out of keeping with his degree of left heart problems. Pulmonary arterial systolic pressure at that time was 60 mm of mercury and over the years has significantly increased, as mentioned above. Has obvious end- stage right heart failure that is not fixable. This was discussed frankly with the patient and his family who appeared to understand and agree. At this point, the patient, family, and physicians agree that he has an end- stage condition that is not likely to respond to even aggressive medical intervention. I have placed orders for comfort measures only and have relayed this information to his primary provider, Dr. Trinidad. CATRACHITO
[2016-04-24] MEDS ORDERED: **NOTE PATIENT COMMENT** MISC XX SCH (09:00)
--- NOTE | 2016-04-24 17:02 | EDDOCDS ---
Physician Documentation [facility] Name: Diogenes Orellana Age: 89 yrs Sex: Male : 1925 Arrival Date: 04/22/2016 Time: 09:26 Bed 6 Private MD: Disposition: 04/22/16 14:14 Hospitalization ordered by Scar Hussein for Inpatient Admission. Preliminary diagnosis are Multiple fractures of ribs, Contusion of lung, Syncope and collapse. - Bed requested for Admit. - Status is Inpatient Admission. mcp - Condition is Stable. - Problem is new. - Symptoms are unchanged. Historical: - Allergies: no known allergies; - Home Meds: 1. Vitamin D Oral 2000 units daily (Last dose: 04/21/2016) 2. Lipitor 20 mg Oral tab 1 tab once daily (Last dose: 04/21/2016) 3. Lasix 120mg Oral 2 times per day (Last dose: 04/21/2016) 4. aspirin 325 mg Oral tab 1 tab once daily (Last dose: 04/21/2016) 5. Spiriva with HandiHaler 18 mcg Inhl CpDv 1 cap once daily (Last dose: 04/21/2016) 6. Cardura 8 mg Oral tab 1 tab once daily (Last dose: 04/21/2016) 7. ProAir HFA 90 mcg/actuation inhalation HFAA 2 puffs every 4 hours 8. Tylenol 500mg tab 1-2 tabs po BID as needed Oral 9. Multivitamins 1 tab daily 10. Mucinex 600 mg oral Ta12 1 tab every 12 hours - PMHx: Stage III Kidney Disease; CHF; COPD; Hypercholesterolemia; - PSHx: Pacemaker Insertion; - Social history: Smoking status: Patient states former smoker of tobacco. No barriers to communication noted, The patient speaks fluent Estonian, Speaks appropriately for age. - Family history: Not pertinent. - : The pt / caregiver states he / she is not on anticoagulants. Home medication list is obtained from the patient, family members. - Exposure Risk Screening:: None identified. Vital Signs: 04/22 09:54 BP 106 / 54; Pulse 56; Resp 20; Temp 97.5(TE); Pulse Ox 92% 3 lpm ; Weight 61.69 kg / jo3 136 lbs; Height 5 ft. 9 in. (175.26 cm); 11:42 BP 113 / 58 (auto/); lf1 11:43 Pulse 58 MON; Pulse Ox 87% ; lf1 12:55 BP 96 / 51 (auto/); lf1 12:55 Pulse 56 MON; Pulse Ox 87% ; lf1 13:10 BP 103 / 57 (auto/); lf1 13:10 Pulse 66 MON; lf1 13:25 BP 115 / 58 (auto/); lf1 13:25 Pulse 62 MON; Pulse Ox 93% ; lf1 13:40 BP 114 / 59 (auto/); lf1 13:40 Pulse 64 MON; Pulse Ox 96% ; lf1 13:55 BP 108 / 57 (auto/); lf1 13:55 Pulse 66 MON; Pulse Ox 93% ; lf1 14:10 BP 110 / 55 (auto/); lf1 14:10 Pulse 68 MON; Pulse Ox 90% ; lf1 14:25 BP 106 / 56 (auto/); lf1 14:25 Pulse 74 MON; Pulse Ox 94% ; lf1 14:39 Pulse 72 MON; Pulse Ox 95% ; lf1 14:40 BP 101 / 58 (auto/); lf1 14:55 BP 102 / 55 (auto/); lf1 14:55 Pulse 70 MON; Pulse Ox 93% ; lf1 15:10 BP 100 / 57 (auto/); lf1 15:10 Pulse 64 MON; Pulse Ox 94% ; lf1 15:25 BP 96 / 51 (auto/); lf1 15:25 Pulse 70 MON; Pulse Ox 87% ; lf1 15:30 BP 89 / 51 (auto/); lf1 15:30 Pulse 68 MON; Pulse Ox 91% ; lf1 15:40 BP 90 / 54 (auto/); jo3 15:40 Pulse 68 MON; Resp 22; Temp 97.5(TE); Pulse Ox 91% ; jo3 09:54 Body Mass Index 20.08 (61.69 kg, 175.26 cm) jo3 09:54 80% on RA jo3 MDM: 09:54 Investment Fund Manager/Pulse Ox/q 15 min VS ordered. sd1 09:54 Accucheck ordered. sd1 09:54 IV Saline Lock ordered. sd1 09:54 Oxygen at 4L/Min NC or Home dosage ordered. sd1 09:54 Rhythm Strip to chart ordered. sd1 09:55 CBC with Diff Ordered. EDMS 09:55 Cardiac Injury Profile Ordered. EDMS 09:55 Liver Profile Ordered. EDMS 09:55 MED Profile Ordered. EDMS 09:55 Thyroid Stimulating Hormone Ordered. EDMS 09:55 Troponin Ordered. EDMS 09:56 CT Head Without Contrast Ordered. EDMS 09:56 ECG WITH READING ER PHYS+CARDIAG ordered. EDMS 10:56 morphine 2 mg IVP every 15 minutes; Document pain score/vitals after each dose (Hold if sd1 SBP < 90mmHg) x3 ordered. 10:56 Ondansetron 4 mg IVP once ordered. sd1 10:57 Chest, 1 View Ordered. EDMS 11:20 CBC with Diff Reviewed. sd1 11:20 Liver Profile Reviewed. sd1 11:20 MED Profile Reviewed. sd1 11:20 Troponin Reviewed. sd1 11:20 CT Head Without Contrast Reviewed. sd1 11:28 Financial registration complete. lg 11:42 [facility] [place] was [place] into [employer] and attached to record. lg 11:57 Cardiac Injury Profile Reviewed. sd1 11:57 Liver Profile Reviewed. sd1 11:57 MED Profile Reviewed. sd1 11:57 Troponin Reviewed. sd1 11:57 Thyroid Stimulating Hormone Reviewed. sd1 12:01 Redraw CIP &Troponin (put time in details section) ordered. sd1 12:03 Redraw CIP &Troponin (put time in details section) complete. deg 12:05 CARDIAC MARKER PANEL Ordered. EDMS 12:54 Albuterol-Ipratropium 3 ml Inhalation once ordered. sd1 12:54 Chest, 1 View Reviewed. sd1 12:56 CT Chest Without Contrast Ordered. EDMS 13:29 Chest, 1 View Reviewed. sd1 14:00 CARDIAC MARKER PANEL Reviewed. sd1 14:00 Chest, 1 View Reviewed. sd1 14:11 PT/INR Ordered. EDMS 14:30 ELECTROCARDIOGRAM ADULT ordered. EDMS 14:51 REGULAR+DIET ordered. EDMS 14:59 REGULAR+DIET ordered. EDMS 15:14 TROPONIN Ordered. EDMS 04/23 09:42 T-Sheet-- Draft Copy was scanned into [employer] and attached to record. gb 09:42 ECG/EKG was scanned into [employer] and attached to record. gb 09:42 Radiology Report was scanned into [employer] and attached to record. gb 09:42 Rhythm Strip was scanned into [employer] and attached to record. gb 09:43 PCR was scanned into [email or web address] and attached to record. gb Administered Medications: 04/22 11:40 Drug: Ondansetron 4 mg [ondansetron HCl 2 mg/mL intravenous solution (2 mL)] Route: jo3 IVP; Site: right antecubital; 11:42 Drug: morphine 2 mg [morphine 2 mg/mL intravenous cartridge (1 mL)] Route: IVP; Site: jo3 right antecubital; 12:00 Drug: morphine 2 mg [morphine 2 mg/mL intravenous cartridge (1 mL)] Route: IVP; Site: jo3 right antecubital; 13:05 Drug: Albuterol-Ipratropium 3 ml [ipratropium-albuterol 0.5 mg-3 mg(2.5 mg base)/3 mL kt1 nebulization soln (3 mL)] Route: Inhalation; 13:20 Follow up: Response: Nebulizer completed kt1 Signatures: Dispatcher [employer] EDMS Maria Esther Garcia MD MD sd1 Jessica Mejia, Financial Quantitative Analyst Unit deg Bethany Jernigan, RN RN Sharmila Pepe, Reg Reg gb Mago Chicas, Reg Reg lg Deepti NashRN RN [email or web address] Jasmyn Deras kt1 The chart was reviewed and I authenticate all verbal orders and agree with the evaluation and treatment provided.Corrections: (The following items were deleted from the chart) 14:25 14:22 TROPONIN ordered. EDMS EDMS Attachments: 11:42 [facility] [place] lg 04/23 09:42 T-Sheet-- Draft Copy gb 09:42 ECG/EKG gb Chart Complete MTDD
--- NOTE | 2016-04-24 17:02 | EDDOCDS ---
Physician Documentation [facility] Name: Diogenes Orellana Age: 89 yrs Sex: Male : 1925 Arrival Date: 04/22/2016 Time: 09:26 Bed 6 Private MD: Disposition: 04/22/16 14:14 Hospitalization ordered by Scra Hussein for Inpatient Admission. Preliminary diagnosis are Multiple fractures of ribs, Contusion of lung, Syncope and collapse. - Bed requested for Admit. - Status is Inpatient Admission. mcp - Condition is Stable. - Problem is new. - Symptoms are unchanged. Historical: - Allergies: no known allergies; - Home Meds: 1. Vitamin D Oral 2000 units daily (Last dose: 04/21/2016) 2. Lipitor 20 mg Oral tab 1 tab once daily (Last dose: 04/21/2016) 3. Lasix 120mg Oral 2 times per day (Last dose: 04/21/2016) 4. aspirin 325 mg Oral tab 1 tab once daily (Last dose: 04/21/2016) 5. Spiriva with HandiHaler 18 mcg Inhl CpDv 1 cap once daily (Last dose: 04/21/2016) 6. Cardura 8 mg Oral tab 1 tab once daily (Last dose: 04/21/2016) 7. ProAir HFA 90 mcg/actuation inhalation HFAA 2 puffs every 4 hours 8. Tylenol 500mg tab 1-2 tabs po BID as needed Oral 9. Multivitamins 1 tab daily 10. Mucinex 600 mg oral Ta12 1 tab every 12 hours - PMHx: Stage III Kidney Disease; CHF; COPD; Hypercholesterolemia; - PSHx: Pacemaker Insertion; - Social history: Smoking status: Patient states former smoker of tobacco. No barriers to communication noted, The patient speaks fluent Wolof, Speaks appropriately for age. - Family history: Not pertinent. - : The pt / caregiver states he / she is not on anticoagulants. Home medication list is obtained from the patient, family members. - Exposure Risk Screening:: None identified. Vital Signs: 04/22 09:54 BP 106 / 54; Pulse 56; Resp 20; Temp 97.5(TE); Pulse Ox 92% 3 lpm ; Weight 61.69 kg / jo3 136 lbs; Height 5 ft. 9 in. (175.26 cm); 11:42 BP 113 / 58 (auto/); lf1 11:43 Pulse 58 MON; Pulse Ox 87% ; lf1 12:55 BP 96 / 51 (auto/); lf1 12:55 Pulse 56 MON; Pulse Ox 87% ; lf1 13:10 BP 103 / 57 (auto/); lf1 13:10 Pulse 66 MON; lf1 13:25 BP 115 / 58 (auto/); lf1 13:25 Pulse 62 MON; Pulse Ox 93% ; lf1 13:40 BP 114 / 59 (auto/); lf1 13:40 Pulse 64 MON; Pulse Ox 96% ; lf1 13:55 BP 108 / 57 (auto/); lf1 13:55 Pulse 66 MON; Pulse Ox 93% ; lf1 14:10 BP 110 / 55 (auto/); lf1 14:10 Pulse 68 MON; Pulse Ox 90% ; lf1 14:25 BP 106 / 56 (auto/); lf1 14:25 Pulse 74 MON; Pulse Ox 94% ; lf1 14:39 Pulse 72 MON; Pulse Ox 95% ; lf1 14:40 BP 101 / 58 (auto/); lf1 14:55 BP 102 / 55 (auto/); lf1 14:55 Pulse 70 MON; Pulse Ox 93% ; lf1 15:10 BP 100 / 57 (auto/); lf1 15:10 Pulse 64 MON; Pulse Ox 94% ; lf1 15:25 BP 96 / 51 (auto/); lf1 15:25 Pulse 70 MON; Pulse Ox 87% ; lf1 15:30 BP 89 / 51 (auto/); lf1 15:30 Pulse 68 MON; Pulse Ox 91% ; lf1 15:40 BP 90 / 54 (auto/); jo3 15:40 Pulse 68 MON; Resp 22; Temp 97.5(TE); Pulse Ox 91% ; jo3 09:54 Body Mass Index 20.08 (61.69 kg, 175.26 cm) jo3 09:54 80% on RA jo3 MDM: 09:54 Team Physician/Pulse Ox/q 15 min VS ordered. sd1 09:54 Accucheck ordered. sd1 09:54 IV Saline Lock ordered. sd1 09:54 Oxygen at 4L/Min NC or Home dosage ordered. sd1 09:54 Rhythm Strip to chart ordered. sd1 09:55 CBC with Diff Ordered. EDMS 09:55 Cardiac Injury Profile Ordered. EDMS 09:55 Liver Profile Ordered. EDMS 09:55 MED Profile Ordered. EDMS 09:55 Thyroid Stimulating Hormone Ordered. EDMS 09:55 Troponin Ordered. EDMS 09:56 CT Head Without Contrast Ordered. EDMS 09:56 ECG WITH READING ER PHYS+CARDIAG ordered. EDMS 10:56 morphine 2 mg IVP every 15 minutes; Document pain score/vitals after each dose (Hold if sd1 SBP < 90mmHg) x3 ordered. 10:56 Ondansetron 4 mg IVP once ordered. sd1 10:57 Chest, 1 View Ordered. EDMS 11:20 CBC with Diff Reviewed. sd1 11:20 Liver Profile Reviewed. sd1 11:20 MED Profile Reviewed. sd1 11:20 Troponin Reviewed. sd1 11:20 CT Head Without Contrast Reviewed. sd1 11:28 Financial registration complete. lg 11:42 [facility] [place] Payment Agreement was scanned into [employer] and attached to record. lg 11:57 Cardiac Injury Profile Reviewed. sd1 11:57 Liver Profile Reviewed. sd1 11:57 MED Profile Reviewed. sd1 11:57 Troponin Reviewed. sd1 11:57 Thyroid Stimulating Hormone Reviewed. sd1 12:01 Redraw CIP &Troponin (put time in details section) ordered. sd1 12:03 Redraw CIP &Troponin (put time in details section) complete. deg 12:05 CARDIAC MARKER PANEL Ordered. EDMS 12:54 Albuterol-Ipratropium 3 ml Inhalation once ordered. sd1 12:54 Chest, 1 View Reviewed. sd1 12:56 CT Chest Without Contrast Ordered. EDMS 13:29 Chest, 1 View Reviewed. sd1 14:00 CARDIAC MARKER PANEL Reviewed. sd1 14:00 Chest, 1 View Reviewed. sd1 14:11 PT/INR Ordered. EDMS 14:30 ELECTROCARDIOGRAM ADULT ordered. EDMS 14:51 REGULAR+DIET ordered. EDMS 14:59 REGULAR+DIET ordered. EDMS 15:14 TROPONIN Ordered. EDMS 04/23 09:42 T-Sheet-- Draft Copy was scanned into [employer] and attached to record. gb 09:42 ECG/EKG was scanned into [employer] and attached to record. gb 09:42 Radiology Report was scanned into [employer] and attached to record. gb 09:42 Rhythm Strip was scanned into [employer] and attached to record. gb 09:43 PCR was scanned into [employer] and attached to record. gb Administered Medications: 04/22 11:40 Drug: Ondansetron 4 mg [ondansetron HCl 2 mg/mL intravenous solution (2 mL)] Route: jo3 IVP; Site: right antecubital; 11:42 Drug: morphine 2 mg [morphine 2 mg/mL intravenous cartridge (1 mL)] Route: IVP; Site: jo3 right antecubital; 12:00 Drug: morphine 2 mg [morphine 2 mg/mL intravenous cartridge (1 mL)] Route: IVP; Site: jo3 right antecubital; 13:05 Drug: Albuterol-Ipratropium 3 ml [ipratropium-albuterol 0.5 mg-3 mg(2.5 mg base)/3 mL kt1 nebulization soln (3 mL)] Route: Inhalation; 13:20 Follow up: Response: Nebulizer completed kt1 Signatures: Dispatcher [employer] EDMS Maria Esther Garcia MD MD sd1 Jessica Mejia, Tractor Sweeper Operator Unit deg Bethany Jernigan, RN RN Sharmila Pepe, Reg Reg gb Mago Chicas, Reg Reg lg Deepti NashRN RN [id number] Jasmyn Deras kt1 The chart was reviewed and I authenticate all verbal orders and agree with the evaluation and treatment provided.Corrections: (The following items were deleted from the chart) 14:25 14:22 TROPONIN ordered. EDMS EDMS Attachments: 11:42 [facility] [place] Agreement lg 04/23 09:42 T-Sheet-- Draft Copy gb 09:42 ECG/EKG gb Chart Complete MTDD
--- NOTE | 2016-04-24 17:02 | EDDOCDS ---
Nurse's Notes [facility] Name: Diogenes Orellana Age: 89 yrs Sex: Male : 1925 Arrival Date: 04/22/2016 Time: 09: Bed 6 Private MD: Diagnosis: Multiple fractures of ribs;Contusion of lung;Syncope and collapse Presentation: 04/22 09:48 Presenting complaint: EMS states: Fell at home possibly to dizziness, general weakness. jo3 Daughter states that pt has fallen 1x in the past week. Was supposed to f/u with Dr Toledo today. Last week Dr toledo increased pts Lasix from 80mg in am and 40mg in pm to 120mg BID. Adult Sepsis Screening: The patient does not have new or worsening altered mentation. Patient's respiratory rate is less than 22. Patient has a qSOFA score of 0- Negative Sepsis Screen. Suicide/Homicide risk assessment- the patient denies having any suicidal and/or homicidal ideations and does not present with any other emotional, behavioral or mental health complaints. Status: Patient is not a service specialist or dependent. Transition of care: patient was not received from another setting of care. 09:48 Acuity: MARNI Level 3 jo3 09:48 Method Of Arrival: Ambulance jo3 Triage Assessment: 09:54 General: Appears in no apparent distress, uncomfortable, Behavior is appropriate for jo3 age, cooperative, pleasant. Pain: Location: left anterior and left posterior rib pain. Historical: - Allergies: no known allergies; - Home Meds: 1. Vitamin D Oral 2000 units daily (Last dose: 04/21/2016) 2. Lipitor 20 mg Oral tab 1 tab once daily (Last dose: 04/21/2016) 3. Lasix 120mg Oral 2 times per day (Last dose: 04/21/2016) 4. aspirin 325 mg Oral tab 1 tab once daily (Last dose: 04/21/2016) 5. Spiriva with HandiHaler 18 mcg Inhl CpDv 1 cap once daily (Last dose: 04/21/2016) 6. Cardura 8 mg Oral tab 1 tab once daily (Last dose: 04/21/2016) 7. ProAir HFA 90 mcg/actuation inhalation HFAA 2 puffs every 4 hours 8. Tylenol 500mg tab 1-2 tabs po BID as needed Oral 9. Multivitamins 1 tab daily 10. Mucinex 600 mg oral Ta12 1 tab every 12 hours - PMHx: Stage III Kidney Disease; CHF; COPD; Hypercholesterolemia; - PSHx: Pacemaker Insertion; - Social history: Smoking status: Patient states former smoker of tobacco. No barriers to communication noted, The patient speaks fluent Slovenian, Speaks appropriately for age. - Family history: Not pertinent. - : The pt / caregiver states he / she is not on anticoagulants. Home medication list is obtained from the patient, family members. - Exposure Risk Screening:: None identified. Screenin:46 Screening information is obtained from the patient, family members. Fall risk: At risk jo3 due to prior history of falls. Assistance ADL's: requires no assistance with activities of daily living. Abuse/DV Screen: The patient / caregiver reports he/she is: not in a situation that causes fear, pain or injury. Nutritional screening: No deficits noted. home support is adequate. 15:40 Advance Directives: There is no active DNR order. jo3 Assessment: 10:10 General: Appears uncomfortable, well nourished, well groomed, Behavior is appropriate jo3 for age, cooperative, pleasant. Neurological: Level of Consciousness is awake, alert, Oriented to person, place, time. Cardiovascular: pacer to left chest. Pt reports on demand and set at 50 BPM. Respiratory: Airway is patent Respiratory effort is even, unlabored, Breath sounds are clear bilaterally. Derm: Skin is pink, warm & dry. small skin tear to left upper arm. secured with band aids from home. Musculoskeletal: Circulation, motion, and sensation intact Pt reports pain to left rib area both anteriorly and posteriorly. 11:00 Reassessment: Patient appears in no apparent distress at this time. Patient states jo3 symptoms have not improved. Pt resting on stretcher with family at bedside. awaiting visit from ED provider. aware of plan of care . 12:15 Reassessment: Patient appears in no apparent distress at this time. Patient states jo3 feeling better. Patient states symptoms have improved. Neurological: Level of Consciousness is awake, alert, Oriented to person, place, time. Respiratory: Airway is patent Respiratory effort is even, unlabored. Derm: Skin is pink, warm & dry. 13:20 General: Appears in no apparent distress, Behavior is appropriate for age, cooperative. jo3 Neurological: Level of Consciousness is awake, alert, Oriented to person, place, time. Respiratory: Airway is patent Respiratory effort is even, unlabored, Some O2 saturation decreases noted. Pt not noted to have any distress. Corrected with Ventimask. Provider notified. 14:20 Reassessment: Patient appears in no apparent distress at this time. Neurological: Level jo3 of Consciousness is awake, alert. Respiratory: Airway is patent Respiratory effort is even, unlabored. 15:39 General: Appears uncomfortable, Behavior is cooperative. Pain: Location: left chest lf1 Pain currently is 8 out of 10 on a pain scale. Aggravated by inspiration. Neurological: Level of Consciousness is awake, alert. Respiratory: Respiratory effort is even, labored, Reports shortness of breath pain with respiration. GI: Denies nausea, vomiting. Derm: multiple bruises and skin tears to BL UE. Vital Signs: 09:54 BP 106 / 54; Pulse 56; Resp 20; Temp 97.5(TE); Pulse Ox 92% 3 lpm ; Weight 61.69 kg; jo3 Height 5 ft. 9 in. (175.26 cm); 11:42 BP 113 / 58 (auto/); lf1 11:43 Pulse 58 MON; Pulse Ox 87% ; lf1 12:55 BP 96 / 51 (auto/); lf1 12:55 Pulse 56 MON; Pulse Ox 87% ; lf1 13:10 BP 103 / 57 (auto/); lf1 13:10 Pulse 66 MON; lf1 13:25 BP 115 / 58 (auto/); lf1 13:25 Pulse 62 MON; Pulse Ox 93% ; lf1 13:40 BP 114 / 59 (auto/); lf1 13:40 Pulse 64 MON; Pulse Ox 96% ; lf1 13:55 BP 108 / 57 (auto/); lf1 13:55 Pulse 66 MON; Pulse Ox 93% ; lf1 14:10 BP 110 / 55 (auto/); lf1 14:10 Pulse 68 MON; Pulse Ox 90% ; lf1 14:25 BP 106 / 56 (auto/); lf1 14:25 Pulse 74 MON; Pulse Ox 94% ; lf1 14:39 Pulse 72 MON; Pulse Ox 95% ; lf1 14:40 BP 101 / 58 (auto/); lf1 14:55 BP 102 / 55 (auto/); lf1 14:55 Pulse 70 MON; Pulse Ox 93% ; lf1 15:10 BP 100 / 57 (auto/); lf1 15:10 Pulse 64 MON; Pulse Ox 94% ; lf1 15:25 BP 96 / 51 (auto/); lf1 15:25 Pulse 70 MON; Pulse Ox 87% ; lf1 15:30 BP 89 / 51 (auto/); lf1 15:30 Pulse 68 MON; Pulse Ox 91% ; lf1 15:40 BP 90 / 54 (auto/); jo3 15:40 Pulse 68 MON; Resp 22; Temp 97.5(TE); Pulse Ox 91% ; jo3 09:54 Body Mass Index 20.08 (61.69 kg, 175.26 cm) jo3 09:54 80% on RA jo3 Vitals: 09:54 Log In Time N/A - ambulance arrival. jo3 ED Course: 09:27 Patient visited by Jessica Mejia, Sugarcane Research Technician. deg 09:27 Patient moved to Waiting deg 09:28 Patient moved to 6 deg 09:52 Triage Initiated jo3 09:59 Patient visited by Deepti Nash,CHELSEA. jo3 10:06 Accompanied by Family Member, Patient has correct armband on for positive ct3 identification. Placed in gown. Bed in low position. Call light in reach. Side rails up X2. elementary school teacher on. Pulse ox on. NIBP on. 10:06 EKG done. (by ED staff). Reviewed by Maria Esther Garcia MD. ct3 10:07 Patient visited by Stephanie Laguerre PCA. ct3 10:34 CT Head Without Contrast Returned. EDMS 10:43 Maria Esther Garcia MD is Attending Physician. sd1 10:56 Patient visited by Maria Esther Garcia MD. sd1 11:03 Patient visited by Deepti Nash,CHELSEA. jo3 11:18 Inserted saline lock: 20 gauge in right antecubital area. Labs drawn. (by ED staff). jo3 Sent per order to lab. 11:35 Patient visited by Stephanie Laguerre PCA. ct3 11:42 [facility] Payment Agreement was scanned into [employer] and attached to record. lg 11:47 Patient visited by Deepti Nash RN. jo3 12:07 Chest, 1 View Returned. EDMS 12:55 Patient visited by Stephanie Laguerre PCA. ct3 12:56 Chest, 1 View Returned. EDMS 13:37 Patient visited by Stephanie Laguerre PCA. ct3 13:46 Chest, 1 View Returned. EDMS 14:14 Scar Hussein is Hospitalizing Provider. sd1 14:37 CT Chest Without Contrast Returned. EDMS 15:40 The patient / caregiver is instructed regarding the plan of care and ED course. jo3 15:44 No procedures done that require assistance. jo3 04/23 09:42 T-Sheet-- Draft Copy was scanned into [employer] and attached to record. gb 09:42 ECG/EKG was scanned into [employer] and attached to record. gb 09:42 Radiology Report was scanned into [employer] and attached to record. gb 09:42 Rhythm Strip was scanned into [employer] and attached to record. gb 09:43 PCR was scanned into [employer] and attached to record. gb Administered Medications: 04/22 11:40 Drug: Ondansetron 4 mg [ondansetron HCl 2 mg/mL intravenous solution (2 mL)] Route: jo3 IVP; Site: right antecubital; 11:42 Drug: morphine 2 mg [morphine 2 mg/mL intravenous cartridge (1 mL)] Route: IVP; Site: jo3 right antecubital; 12:00 Drug: morphine 2 mg [morphine 2 mg/mL intravenous cartridge (1 mL)] Route: IVP; Site: 3 right antecubital; 13:05 Drug: Albuterol-Ipratropium 3 ml [ipratropium-albuterol 0.5 mg-3 mg(2.5 mg base)/3 mL kt1 nebulization soln (3 mL)] Route: Inhalation; 13:20 Follow up: Response: Nebulizer completed kt1 Attachments: 09:42 Rhythm Strip gb RT: 04/22 13:20 Initial Med Neb Given as ordered Patient was instructed and evaluated on procedure. kt1 Respiratory: Breath sounds are clear bilaterally. Order Results: Lab Order: CBC with Diff; SPEC'M 04/22/16 10:33 Test: WHITE BLOOD COUNT; Value: 11.1; Range: 4.0-10.0; Abnormal: Above high normal; Units: K/mm3; Status: F Test: RED BLOOD COUNT; Value: 3.92; Range: 4.30-6.10; Abnormal: Below low normal; Units: M/mm3; Status: F Test: HEMOGLOBIN; Value: 12.9; Range: 14.0-18.0; Abnormal: Below low normal; Units: g/dl; Status: F Test: HEMATOCRIT; Value: 40.8; Range: 42.0-52.0; Abnormal: Below low normal; Units: %; Status: F Test: MEAN CORPUSCULAR VOLUME; Value: 104.2; Range: 80.0-96.0; Abnormal: Above high normal; Units: fl; Status: F Test: MEAN CORPUSCULAR HEMOGLOBIN; Value: 33.0; Range: 27.0-33.0; Units: pg; Status: F Test: MEAN CORPUSCULAR HGB CONC; Value: 31.7; Range: 32.0-36.5; Abnormal: Below low normal; Units: g/dl; Status: F Test: RED CELL DISTRIBUTION WIDTH; Value: 14.3; Range: 11.5-14.5; Units: %; Status: F Test: PLATELET COUNT, AUTOMATED; Value: 100; Range: 150-450; Abnormal: Below low normal; Units: k/mm3; Status: F Test: NEUTROPHILS %; Value: 82.4; Range: 36.0-66.0; Abnormal: Above high normal; Units: %; Status: F Test: LYMPH %; Value: 9.9; Range: 24.0-44.0; Abnormal: Below low normal; Units: %; Status: F Test: MONO %; Value: 5.5; Range: 0.0-5.0; Abnormal: Above high normal; Units: %; Status: F Test: EOS %; Value: 0.4; Range: 0.0-3.0; Units: %; Status: F Test: BASO %; Value: 0.4; Range: 0.0-1.0; Units: %; Status: F Test: LARGE UNSTAINED CELL %; Value: 1.4; Range: 0.0-4.0; Units: %; Status: F Test: NEUTROPHILS #; Value: 9.1; Range: 1.8-7.7; Abnormal: Above high normal; Units: K/mm3; Status: F Test: LYMPH #; Value: 1.3; Range: 1.5-4.5; Abnormal: Below low normal; Units: K/mm3; Status: F Test: MONO #; Value: 0.6; Range: 0.0-0.8; Units: K/mm3; Status: F Test: EOS #; Value: 0.0; Range: 0.0-0.50; Units: K/mm3; Status: F Test: BASO #; Value: 0.0; Range: 0.0-0.2; Units: K/mm3; Status: F Test: LARGE UNSTAINED CELL #; Value: 0.2; Range: 0.0-0.4; Units: K/mm3; Status: F Lab Order: Cardiac Injury Profile; SPEC'M 04/22/16 10:33 Test: CPK CREATINE PHOSPHOKINASE; Value: 100; Range: 39-308; Units: U/L; Status: F Test: CK-MB VALUE MASS; Value: 5.2; Range: 0.0-3.6; Abnormal: Above high normal; Units: NG/ML; Status: F Test: MB/CK RELATIVE INDEX; Value: 5.20; Range: < OR =4; Abnormal: Above high normal; Status: F Test Note: ; DIAGNOSIS CRITERIA MMB ng/ml Relative Index (RI) NON-AMI < or = 5 N/A LIMON ZONE > 5 < or = 4 AMI > 5 > 4 Lab Order: Liver Profile; SPEC'M 04/22/16 10:33 Test: AST/SGOT; Value: 28; Range: 15-37; Units: U/L; Status: F Test: ALT/SGPT; Value: 27; Range: 12-78; Units: U/L; Status: F Test: ALKALINE PHOSPHATASE; Value: 148; Range: 45-117; Abnormal: Above high normal; Units: U/L; Status: F Test: BILIRUBIN,TOTAL; Value: 1.6; Range: 0.2-1.0; Abnormal: Above high normal; Units: MG/DL; Status: F Test: BILIRUBIN,DIRECT; Value: 0.7; Range: 0.0-0.2; Abnormal: Above high normal; Units: MG/DL; Status: F Test: TOTAL PROTEIN; Value: 6.7; Range: 6.4-8.2; Units: GM/DL; Status: F Test: ALBUMIN; Value: 3.4; Range: 3.2-5.2; Units: GM/DL; Status: F Test: ALBUMIN/GLOBULIN RATIO; Value: 1.03; Range: 1.00-1.93; Status: F Lab Order: MED Profile; SPEC'04/22/16 10:33 Test: GLUCOSE, FASTING; Value: 156; Range: 83-110; Abnormal: Above high normal; Units: MG/DL; Status: F Test: BLOOD UREA NITROGEN; Value: 76; Range: 7-18; Abnormal: Above high normal; Units: MG/DL; Status: F Test: CREATININE FOR GFR; Value: 2.60; Range: 0.70-1.30; Abnormal: Above high normal; Units: MG/DL; Status: F Test: GLOMERULAR FILTRATION RATE; Value: 24.9; Range: >35; Abnormal: Below low normal; Status: F Test: SODIUM LEVEL; Value: 143; Range: 136-145; Units: MEQ/L; Status: F Test: POTASSIUM SERUM; Value: 4.0; Range: 3.5-5.1; Units: MEQ/L; Status: F Test: CHLORIDE LEVEL; Value: 106; Range: 98-107; Units: MEQ/L; Status: F Test: CARBON DIOXIDE LEVEL; Value: 24; Range: 21-32; Units: MEQ/L; Status: F Test: ANION GAP; Value: 13; Range: 8-16; Units: MEQ/L; Status: F Test: CALCIUM LEVEL; Value: 8.7; Range: 8.8-10.2; Abnormal: Below low normal; Units: MG/DL; Status: F Test Note: ; Units are mL/min/1.73 m2 Chronic Kidney Disease Staging per NKF: Stage I & II GFR >=60 Normal to Mildly Decreased Stage III GFR 30-59 Moderately Decreased Stage IV GFR 15-29 Severely Decreased Stage V GFR <15 Very Little GFR Left ESRD GFR <15 on TECHNICAL SERVICES ASSISTANT Lab Order: Thyroid Stimulating Hormone; SPEC'04/22/16 10:33 Test: THYROID STIMULATING HORMONE; Value: 2.580; Range: 0.358-3.740; Units: uIU/ML; Status: F Lab Order: Troponin; [facility]' 04/22/16 10:33 Test: TROPONIN I; Value: 0.43; Range: < 0.10; Abnormal: Above high normal; Units: NG/ML; Status: F Test Note: ; Troponin I Reference Interval for Master The Gap LOCI: 99th Percentile= 0.00-0.045 ng/ml Risk Stratification: <= 0.10 ng/ml Decreased Risk for Adverse Clinical Events. 0.10-1.50 ng/ml Increased Risk for Adverse Clinical Events. Evaluation of additional criterion and/or repeat testing in 2-6 hours is suggested to rule out myocardial damage. >= 1.50 ng/ml Indicative of Myocardial Injury. Lab Order: CARDIAC MARKER PANEL; [facility] 04/22/16 12:44 Test: CPK CREATINE PHOSPHOKINASE; Value: 128; Range: 39-308; Units: U/L; Status: F Test: CK-MB VALUE MASS; Value: 10.1; Range: 0.0-3.6; Abnormal: Above high normal; Units: NG/ML; Status: F Test: MB/CK RELATIVE INDEX; Value: 7.89; Range: < OR =4; Abnormal: Above high normal; Status: F Test: TROPONIN I; Value: 1.34; Range: < 0.10; Abnormal: High; Units: NG/ML; Status: F Test Note: ; DIAGNOSIS CRITERIA MMB ng/ml Relative Index (RI) NON-AMI < or = 5 N/A LIMON [place]ONE > 5 < or = 4 AMI > 5 > 4 Lab Order: PT/INR; [facility] 04/22/16 10:33 Test: PROTHROMBIN TIME; Value: 15.7; Range: 12.3-14.5; Abnormal: Above high normal; Units: SECONDS; Status: F Test: INR; Value: 1.24; Status: F Test Note: ; THERAPUTIC HUMAN INR VALUES INDICATIONS NORMAL RANGES PROPHYLAXIS/TREATMENT OF: VENOUS THROMBOSIS 2.0-3.0 PULMONARY EMBOLISM 2.0-3.0 PREVENTION OF SYSTEMIC EMBOLISM FROM: TISSUE HEART VALVES 2.0-3.0 ACUTE MYOCARDIAL INFARCTION 2.0-3.0 VALVULAR HEART DISEASE 2.0-3.0 ATRIAL FIBRILLATION 2.0-3.0 MECHANICAL VALVES(HIGH RISK) 2.5-3.5 RECURRENT MYOCARDIAL INFARCTION 2.5-3.5 Radiology Order: CT Head Without Contrast Test: CT Head Without Contrast REASON FOR EXAMINATION: Trauma; CT HEAD WITHOUT CONTRAST:; ; HISTORY: Trauma.; ; Areas of decreased attenuation are present in the periventricular white matter.; This represents small vessel ischemic disease. There is no intraparenchymal; hemorrhage, mass or midline shift. The ventricular system and cortical sulci are; dilated consistent with moderate volume loss. There is no extracerebral; collection. There is no fracture. The visualized sinuses are clear.; ; IMPRESSION:; ; 1. Small vessel ischemic disease.2. Moderate volume loss.; ; ; Signed by; Bogdan Swanson MD 04/22/2016 10:33 A; Radiology Order: Chest, 1 View Test: Chest, 1 View REASON FOR EXAMINATION: Cough;Trauma; PORTABLE CHEST:; ; Single AP portable view of the chest is performed and compared to prior study; 04/14/2016. Cardiomegaly is again noted as well as bibasilar fibrotic changes.; I see no evidence of acute infiltrate or pulmonary edema. There is mild; calcification of the thoracic aorta. Mediastinal silhouette is unchanged. Left; single lead pacemaker is again noted.; ; IMPRESSION:; ; Cardiomegaly and chronic changes are stable. No acute infiltrate.; ; ; Signed by; Adolfo Limon MD 04/22/2016 12:46 P; Radiology Order: CT Chest Without Contrast Test: CT Chest Without Contrast REASON FOR EXAMINATION: Trauma; CT study of the chest without contrast:; ; History: Trauma. Left sided rib pain after a fall. Comparison is made with; today's radiograph. Comparison chest CT study is from November 09, 2012.; ; CT findings: There are multiple left-sided acute rib fractures. The posterior; aspect of the left 4th, 5th, 6th, 7th, 8th and 9th ribs show fractures. There; are lateral fractures of the left third rib as well as the left 4th, 5th, 6th and; 7th ribs. The 4th through 7th ribs are fractured in two places.; ; There is a small left pleural effusion consistent with a small left hemothorax.; There are patchy areas of consolidation in the left lower lobe posterolaterally; and posteromedially consistent with contusion. A very small quantity of pleural; fluid is seen in the right posterior lung gutter as well. There is evidence of; COPD with linear fibrosis in the bases.; ; A somewhat spiculated nodular opacity is visible in the right upper lobe. This; is 8 mm in diameter and is somewhat suspicious for primary pulmonary malignancy.; It is a new finding when compared with the 2013 prior study. No other suspicious; nodule is seen. No hilar or mediastinal mass is seen. Prominent vascular; calcification is noted. No adrenal lesion is seen.; ; Impression:; ; 1. Multiple left-sided rib fractures with fractures involving ribs 3 through 9.; Ribs 4-7 are fractured in two placed, posteriorly and laterally. There is a; small amount of pleural fluid bilaterally. No pneumothorax is seen.; ; 2. Left lower lobe pulmonary contusion.; ; 3. Suspicious 8 mm spiculated nodule right upper lobe merits follow-up and; further evaluation.; ; 4. Cardiomegaly.; ; ; Signed by; Alejandro Wang MD 04/22/2016 03:00 P; Outcome: 14:14 Decision to Hospitalize by Provider. sd1 15:43 Discharge Assessment: Patient awake, alert and oriented x 3. No cognitive and/or jo3 functional deficits noted. Patient verbalized understanding of disposition instructions. patient administered narcotics - yes. Patient was admitted to the hospital or transferred to another facility. The following High Risk Discharge criteria are identified: None. Admitted to PCU accompanied by nurse, accompanied by tech, family with patient, via stretcher, with oxygen, on monitor, with chart. Condition: stable. CT Study completed. Property :Personal belongings accompany Pt. 16:01 Patient [address] the ED[address] [facility] Signatures: Dispatcher [employer] EDDE Maria Esther Garcia MD MD sd1 Jessica Mejia, Sugarcane Research Technician Unit deg Bethany Jernigan, RN RN [facility] Sharmila Blanco, Reg Reg gb Mago Chicas, Reg Reg Jasmyn Sylvester kt1 Deepti Nash RN RN [id number] Jennifer Knott RN RN lf1 Stephanie Laguerre, BOAT TENDER BOAT TENDER ct3 Chart Complete MTDD
--- NOTE | 2016-04-26 08:31 | ECHO ---
DATE OF PROCEDURE: 04/22/2016 (Late entry, study reviewed yesterday and discussed with his attending physician). AGE: 89 GENDER: Male REFERRING PHYSICIAN: Dr. Heaton. HEIGHT: 69 inches. WEIGHT: 134 pounds. BODY SURFACE AREA: 1.74 sq m. INPATIENT: Intensive care unit (ICU) Room 3201. INDICATION: Syncopal spell. Atrial fibrillation. Right heart failure. MEASUREMENTS: 2D MEASUREMENTS: RV - 5.9 cm RA: 6.7 LV- 3.5 cm Septum - 1.0 cm Posterior wall - 1.0 cm Aortic root - 3.3 cm LA - 4.0 cm LVEF - 50-55% DOPPLER MEASUREMENTS: AV - 1.38 m/s LVOT - 0.61 m/s LVOT diameter - 1.8 cm MV-E: 90 Early mitral deacceleration time 208 ms E-prime - 7.1 E/E prime ratio - 12.8 PV - 0.65 m/s Pulmonary artery acceleration time - 74 ms RVSP - 83-87 mmHg IVC - 2.7 cm COMMENTS: Underlying atrial fibrillation with controlled ventricular response averaging 70 bpm. No intraventricular conduction disturbance. Left atrial size upper limits of normal to mildly dilated. Normal left ventricular size. Right ventricle was at least moderately dilated and the right atrium was markedly dilated. LV wall thickness was normal. On real-time imaging from the parasternal and apical projections, there was an obvious septal wall motion abnormality believed to be related to right ventricular pressure overload. Other wall motion was normal. The right ventricle was markedly hypokinetic. Mild mitral annular thickening with some thickening of the mitral leaflet edges but adequate leaflet excursion with no posterior systolic buckling. Three equal size aortic cusps with moderate cusp thickening but adequate cusp separation. Degree of premature cusp closure in keeping with reduced forward stroke volume. Normal aortic root size. Pacing leads could be visualized traversing right heart chambers but no other intracardiac mass or pericardial effusion. Color flow Doppler study taken from the parasternal and apical projection showed trace aortic, very mild mitral, severe tricuspid and moderately severe pulmonic insufficiency. Guided continuous wave Doppler of his aortic valve showed a normal peak systolic velocity against LV outflow tract obstruction. Pulsed and continuous wave Doppler of his LV inflow tract taken from the apical four-chamber projection showed normal diastolic filling velocities against mitral stenosis. There was only early diastolic/passive filling pattern as we would expect with atrial fibrillation. It is difficult to define left ventricular diastolic function with atrial fibrillation but his early mitral deceleration time was normal and his estimated mean left atrial pressure/pulmonary artery wedge pressure were upper limits of normal at 13 - 15 mmHg. Pulsed and continuous wave Doppler of his pulmonary trunk showed a normal peak systolic velocity against RV outflow tract obstruction. His pulmonary artery acceleration time was abbreviated consistent with an elevated pulmonary vascular resistance. Guided continuous wave Doppler of his tricuspid valve allowed our estimation of his right ventricular systolic pressure (severely increased). His inferior vena cava was prominently dilated with markedly reduced respiratory collapse in keeping with an elevated central venous pressure/right heart failure. CONCLUSIONS: Normal left ventricular size and wall thickness with septal wall motion abnormality related to right ventricular pressure overload yet preserved global left ventricular systolic function. Borderline left atrial enlargement with currently estimated mean left atrial pressure upper limits of normal. Moderately dilated and hypokinetic right ventricle with Doppler evidence of severe pulmonary hypertension. Markedly dilated right atrium and moderately dilated IVC with reduced respiratory collapse in keeping with elevated central venous pressure/right heart failure. Moderate aortic valvular sclerosis without stenosis. Only trace insufficiency. Mild degenerative changes of his mitral valvular apparatus without functional valvular abnormality. The above test findings were discussed with Dr. Fink and Dr. Trinidad 04/23/2016. Current report is a late entry. The above test findings were compared with prior study in 2006 which also showed fairly severe pulmonary hypertension with estimated pulmonary arterial systolic pressure of 60 mmHg at that time. Today's findings are consistent with a very guarded prognosis.
--- NOTE | 2016-05-13 10:20 | RO ---
DATE OF PROCEDURE: 04/23/2016 PREPROCEDURE DIAGNOSIS: Need for vascular access and pressor support. POSTPROCEDURE DIAGNOSIS: Need for vascular access and pressor support. PROCEDURE: Insertion of right subclavian central line. SURGEON: Dr. Diogenes Fink [employer] INSPECTOR: ANESTHESIA: FINDINGS: The first x-ray after the insertion of the line showed that the line was going up into the neck. Another entry point more lateral allowed the catheter to go down into the superior vena cava. PROCEDURE: The patient was prepped and draped in the usual sterile fashion in the right infraclavicular fossa. Infraclavicular fossa was infiltrated with 1% Xylocaine. The subclavian vein was found on the first pass and a wire was placed. The tract was dilated and a triple lumen catheter was placed. An interim chest x-ray showed the catheter to be going up the neck. The patient was again prepped and draped in the usual sterile fashion. Again, once again infiltrated with Xylocaine, and a place was picked more lateral to where the first line had been placed. Again, the vein was found on the first pass and a wire was placed. This created PVCs, which indicated the wire was indeed going in the right direction. The tract again was dilated and triple lumen was placed with Seldinger technique. The catheter ports were aspirated and flushed without difficulty. The catheter was secured to the chest wall with two #3-0 silk sutures. The patient tolerated the procedure well and a chest x-ray showed the line to be going in the right direction.
--- NOTE | 2016-05-15 08:49 | DSES ---
DATE OF ADMISSION: 04/22/2016 DATE OF EXPIRATION/DISCHARGE: 04/23/2016 PRIMARY CARE PROVIDER: Lavell Roman MD ATTENDING PHYSICIAN: Isaac Trinidad MD HISTORY: This was an 89-year-old male patient of Dr. Roman who presented to [facility] Emergency Room after having suffered a couple of falls and having increasing shortness of breath and pain. Approximately 1 week prior to his presentation, he fell while loading groceries into his car in the parking lot. He did not seek medical attention at that time, although he did complain of increasing shortness of breath; and, therefore, his diuretic was increased. The day of his presentation, he woke up, immediately felt short of breath and lightheaded. Soon thereafter, while walking into his kitchen, he lost consciousness. He was alone on both occasions, although the occasion prompted his trip to the emergency room. His found him on the floor in the kitchen and called emergency medical services (EMS). In the emergency room, he was found to have a pulmonary contusion with multiple rib fractures and troponinemia. He was admitted to the hospital for further management and monitoring. During his hospitalization, medically he was quite fragile. He was seen by Dr. Fink and Dr. Moncada in consultation. The patient was felt to require nonsurgical treatment by Dr. Fink. He was subsequently placed on an epidural for pain control, which resulted in hypotension, and he required phenylephrine increasingly secondary to the hypotension, although when his epidural pain control was backed down, his pain became intolerable, and he had difficulty mobilizing secretions; and, therefore, there was a concern for pneumonia. Dr. Moncada saw the patient and had a very anish discussion with the patient and his family about the acuity of his situation, as well as his advanced cor. pulmonale and right heart failure. At the time of Dr. Moncada' discussion, they opted for comfort measures. As a result of this, the vasopressor therapy was discontinued , and his epidural therapy was increased. His diagnoses include cardiogenic shock, NSTEMI, hypotension, multifactorial, including severe cor. pulmonale, pulmonary hypertension, intractable chest pain secondary to multiple rib fractures, lung contusion, syncope, chronic obstructive pulmonary disease (COPD), atrial fibrillation, chronic stage [address] [facility]
== END 2016-04-23 23:15 | disposition expired | DRG 183 ==
LOC: M ED 09:26 → M ED INP 15:35 → M PCU 15:58 → M ICU 20:07
PROVIDERS: ADMIT Thoracic Surgery (Cardiothoracic Vascular Surgery); ATTEND Family Medicine
DX: S22.42XA Multiple fractures of ribs, left side, initial encounter for closed fracture (principal); I21.4 Non-ST elevation (NSTEMI) myocardial infarction; I50.32 Chronic diastolic (congestive) heart failure; S27.321A Contusion of lung, unilateral, initial encounter; J90 Pleural effusion, not elsewhere classified; I24.9 Acute ischemic heart disease, unspecified; E87.2 Acidosis; N18.3 Chronic kidney disease, stage 3 (moderate); Z51.5 Encounter for palliative care; Z66 Do not resuscitate; E78.5 Hyperlipidemia, unspecified; K21.9 Gastro-esophageal reflux disease without esophagitis; J44.9 Chronic obstructive pulmonary disease, unspecified; E55.9 Vitamin D deficiency, unspecified; R57.0 Cardiogenic shock; N40.0 Benign prostatic hyperplasia without lower urinary tract symptoms; I95.9 Hypotension, unspecified; I48.2 Chronic atrial fibrillation; I27.2 Other secondary pulmonary hypertension; I34.0 Nonrheumatic mitral (valve) insufficiency; H93.13 Tinnitus, bilateral; E86.0 Dehydration; T50.1X5A Adverse effect of loop [high-ceiling] diuretics, initial encounter; T44.6X5A Adverse effect of alpha-adrenoreceptor antagonists, initial encounter; I44.39 Other atrioventricular block; W18.30XA Fall on same level, unspecified, initial encounter; Y92.013 Bedroom of single-family (private) house as the place of occurrence of the external cause; I95.89 Other hypotension; I27.81 Cor pulmonale (chronic); J84.10 Pulmonary fibrosis, unspecified; Z79.82 Long term (current) use of aspirin; Z79.899 Other long term (current) drug therapy; Z87.891 Personal history of nicotine dependence; Z95.0 Presence of cardiac pacemaker